=== PATIENT | female | born 1970 | race African-American/Black ===

== ENCOUNTER 2017-11-17 20:07 | Emergency (ER) | payer OTHER ==
[2017-11-17 20:35] VITALS: TEMP 98.5; BMI 35.5
--- NOTE | 2017-11-17 20:36 | PDOC ---
Rapid Medical Evaluation Time Seen by Provider: 11/17/17 20:28 Medical Evaluation: Allergies Allergy/AdvReac Type Severity Reaction Status Date / Time No Known Allergies Allergy Verified 02/28/16 05:37 11/17/17 20:28 I have performed a brief in-person evaluation of this patient. The patient presents with a chief complaint of: headache & pain to back x 4 days , 8/10 pain, c/o chills, cough, no sneezing/runny nose. Pertinent physical exam findings: neurologically intact, no neck stiffness, tachy to 95 I have ordered the following: urine preg The patient will proceed to the ED for further evaluation. Discharge Disposition - Diagnosis Headache - Referrals - Patient Instructions - Post Discharge Activity
[2017-11-17] MEDS ORDERED: METOCLOPRAMIDE HCL INJECTION 10 MG/2 ML VIAL IVPUSH ONE (22:52)
[2017-11-17] MEDS ORDERED: KETOROLAC TROMETHAMINE 30 MG/1 ML VIAL IVPUSH ONE (22:52)
[2017-11-17] MEDS ORDERED: SODIUM CHLORIDE 0.9% 1000 ML INFUS.BAG IV ONE (22:52)
--- NOTE | 2017-11-17 23:54 | PDOC ---
History of Present Illness - General Chief Complaint: Pain Stated Complaint: HEADACHE/FEVER Time Seen by Provider: 11/17/17 20:28 - History of Present Illness Initial Comments: 11/17/17 23:53 CHIEF COMPLAINT: headache and pain to neck/back HISTORY OF PRESENT ILLNESS: 47 yo F with hx of presents to ED with headache & pain to back x 4 days. Patient reports the pain is 8/10 pain and states she has had chills but does not know if she had fevers at home. She also reports cough but no sneezing or any runny nose. She denies any nausea, vomiting, or diarrhea. No recent travel or sick contacts. PAST MEDICAL HISTORY: Denies past medical history FAMILY HISTORY: Denies SOCIAL HISTORY: Lives at home with ____. Occupation: . Denies tobacco, alcohol, illicit drug use. SURGICAL HISTORY: Denies ALLERGIES: No known drug allergies REVIEW OF SYSTEMS General/Constitutional: Denies fever or chills. Denies weakness, weight change. HEENT: Denies change in vision. Denies ear pain or discharge. Denies sore throat. Cardiovascular: Denies chest pain or shortness of breath. Respiratory: Denies cough, wheezing, or hemoptysis. Gastrointestinal: Denies nausea, vomiting, diarrhea or constipation. Denies rectal bleeding. Genitourinary: Denies dysuria, frequency, or change in urination. Musculoskeletal: Denies joint or muscle swelling or pain. Denies neck or back pain. Skin and breasts: Denies rash or easy bruising. Neurologic: Denies headache, vertigo, loss of consciousness, or loss of sensation. Psychiatric: Denies depression or anxiety. Endocrine: Denies increased thirst. Denies abnormal weight change. Hematologic/Lymphatic: Denies anemia, easy bleeding, or history of blood clots. Allergic/Immunologic: Denies hives or skin allergy. Denies latex allergy. PHYSICAL EXAM General Appearance: Well-appearing, appropriately dressed. No apparent distress , no intoxication. HEENT: EOMI, PERRLA, normal ENT inspection, normal voice, TMs normal, pharynx normal. No conjunctival pallor. No photophobia, scleral icterus. Neck: Supple. Trachea midline. No tenderness, rigidity, carotid bruit, stridor , lymphadenopathy, or thyromegaly. Respiratory/Chest: Lungs CTAB. No shortness of breath, chest tenderness, respiratory distress, accessory muscle use. No crackles, rales, rhonchi, stridor , wheezing, dullness Cardiovascular: RRR. S1, S2. No JVD, murmur, bradycardia, tachycardia. Vascular Pulses: Dorsalis-Pedis (R): 2+, Dorsalis-Pedis (L): 2+ Gastrointestinal/Abdominal: Normal bowel sounds. Abdomen soft, non-distended. No tenderness or rebound tenderness. No organomegaly, pulsatile mass, guarding , hernia, hepatomegaly, splenomegaly. Lymphatic: No adenopathy, tenderness. Musculoskeletal/Extremities: Normal inspection. FROM of all extremities, normal capillary refill. Pelvis Stable. No CVA tenderness. No tenderness to extremities, pedal edema, swelling, erythema or deformity. Integumentary: Appropriate color, dry, warm. No cyanosis, erythema, jaundice or rash Neurologic: gift manager II-XII intact. Fully oriented, alert. Appropriate mood/affect. Motor strength 5/5. No appreciable EOM palsy, facial droop or sensory deficit. Past History - Past Medical History Allergies/Adverse Reactions: Allergies Allergy/AdvReac Type Severity Reaction Status Date / Time No Known Allergies Allergy Verified 11/17/17 20:32 Home Medications: Ambulatory Orders Metformin HCl 500 mg PO BID 02/28/16 Glimepiride 2 mg PO DAILY 02/29/16 Benzonatate [Tessalon Pearls -] 100 mg PO TID PRN #21 capsule 11/18/17 Ibuprofen [Motrin -] 600 mg PO TID PRN #21 tablet 11/18/17 COPD: No Diabetes: Yes (NIDDM) - Reproductive History (#): 3 Para: 1 Cervical CA: No Dysfunctional Uterine Bleeding: No Ectopic : No Endometrial CA: No Polycystic Ovaries: No Therapeutic (s) & number: No Tubal Ligation: No Spontaneous : 1 - Suicide/Smoking/Psychosocial Hx Smoking Status: No Smoking History: Never smoked Have you smoked in the past 12 months: No Number of Cigarettes Smoked Daily: 0 Information on smoking cessation initiated: No Hx Alcohol Use: No Drug/Substance Use Hx: No Substance Use Type: None Hx Substance Use Treatment: No *Physical Exam - Vital Signs Last Vital Signs Temp Pulse Resp BP Pulse Ox 98.5 F 95 H 20 136/90 96 11/17/17 20:32 11/17/17 20:32 11/17/17 20:32 11/17/17 20:32 11/17/17 20:32 ED Treatment Course - ADDITIONAL ORDERS Additional order review: Laboratory Results 11/17/17 20:40 Urine HCG, Qual Negative Medical Decision Making - Medical Decision Making 11/18/17 01:34 47 yo F with hx of presents to ED with headache & pain to back x 4 days associated with cough and chills. -flu swab -IVF, toradol, reglan, benadryl Patient reassesesd, states she is now sleepy but her headache and back pain have now resolved and she is feelign umer.r Advised patient to take medication as prescribed and follow up with [] within [] . Advised patient of signs and symptoms for return to ED. Patient verbalized understanding and agrees to plan. *DC/Admit/Observation/Transfer Diagnosis at time of Disposition: Headache, Viral syndrome - Discharge Dispostion Disposition: HOME Condition at time of disposition: Stable Admit: No - Prescriptions Prescriptions: Benzonatate [Tessalon Pearls -] 100 mg PO TID PRN #21 capsule PRN Reason: Cough Ibuprofen [Motrin -] 600 mg PO TID PRN #21 tablet PRN Reason: Fever - Referrals Referrals: Flaquito Looney MD [Primary Care Provider] - - Patient Instructions Printed Discharge Instructions: DI for Viral Syndrome Additional Instructions: Please get lots of rest and drink plenty of fluids. Please take medications as prescribed and follow up with your primary care doctor THIS WEEK as discussed. If you develop any fever, chills, shortness of breath, vomiting, neck stiffness , vomiting, diarrhea, or any new or worsening symptoms, please return to the ER. - Post Discharge Activity Forms/Work/School Notes: Back to Work
[2017-11-17] MEDS ORDERED: METOCLOPRAMIDE HCL INJECTION 10 MG/2 ML VIAL ONE (23:56)
[2017-11-17] MEDS ORDERED: KETOROLAC TROMETHAMINE 30 MG/1 ML VIAL ONE (23:57)
[2017-11-18 02:19] VITALS: BP 126/80; PULSE 79
== END 2017-11-18 02:20 | disposition home or self-care (01) ==
LOC: JER 20:07
PROC: 3E033GC Introduction of Other Therapeutic Substance into Peripheral Vein, Percutaneous Approach (ICD-10-PCS; principal; 2017-11-17)
PROC: 3E0333Z Introduction of Anti-inflammatory into Peripheral Vein, Percutaneous Approach (ICD-10-PCS; 2017-11-17)
PROC: 3E033GC Introduction of Other Therapeutic Substance into Peripheral Vein, Percutaneous Approach (ICD-10-PCS; 2017-11-17)
DX: B34.9 Viral infection, unspecified (principal); R51 Headache
CPT/HCPCS: 84703; 87804; 96374; 96375; 99282-25

== ENCOUNTER 2021-05-14 20:32 | Observation (INO) | payer OTHER ==
[2021-05-15] MEDS ORDERED: DEXAMETHASONE SOD PHOSPHATE 10 MG/1 ML VIAL IVPUSH ONE (00:44)
[2021-05-15] MEDS ORDERED: ACETAMINOPHEN 1000 MG/100 ML VIAL IVPB ONE (00:44)
[2021-05-15] MEDS ORDERED: LACTATED RINGERS SOLUTION 1000 ML INFUS.BAG IV ONE (00:44)
[2021-05-15 00:52] LABS: BASO % 0.5 % (0-2.0); EOS % 0.3 % (0-4.5); HEMATOCRIT 37.2 % (32.4-45.2); HEMOGLOBIN 12.1 GM/dL (10.7-15.3); LYMPH % 27.3 % (8-40); MCH 27.9 pg (25.7-33.7); MCHC 32.5 g/dl (32.0-36.0); MEAN CELL VOLUME 85.9 fl (80-96); MEAN PLT VOLUME 7.6 fl (7.5-11.1); MONO % 4.5 % (3.8-10.2); NEUT % 67.4 % (42.8-82.8); PLATELET COUNT 326 10^3/uL (134-434); RBC 4.34 M/mm3 (3.60-5.2); RDW 13.9 % (11.6-15.6); WHITE BLOOD COUNT 14.3 K/mm3 (4.0-10.0)
[2021-05-15 01:00] LABS: INR 0.88 (0.83-1.09); PROTHROMBIN TIME (PATIENT) 10.9 SEC (9.7-13.0)
[2021-05-15] MEDS ORDERED: ACETAMINOPHEN INJECTION 100 ML IVPB ONE (01:01)
[2021-05-15] MEDS ORDERED: DEXAMETHASONE SOD PHOSPHATE 10 MG/1 ML VIAL ONE (01:01)
[2021-05-15 01:03] LABS: ACTIVATED PTT 25.5 SECONDS (25.2-36.5)
[2021-05-15 01:12] LABS: CHLORIDE 105 mmol/L (98-107); SODIUM 139 mmol/L (136-145)
[2021-05-15 01:13] LABS: ALBUMIN 3.3 g/dl (3.4-5.0); CALCIUM 8.5 mg/dL (8.5-10.1)
[2021-05-15 01:14] LABS: ANION GAP 7 MMOL/L (8-16); BLOOD UREA NITROGEN 10.5 mg/dL (7-18); CO2 28 mmol/L (21-32); GLUCOSE,RANDOM 223 mg/dL (74-106); MAGNESIUM 1.9 mg/dL (1.8-2.4)
[2021-05-15 01:18] LABS: CREATININE 0.9 mg/dL (0.55-1.3); SGOT/AST 14 U/L (15-37); SGPT/ALT 22 U/L (13-61)
[2021-05-15 01:19] LABS: ALK PHOS 127 U/L (45-117); BILIRUBIN,TOTAL 0.5 mg/dL (0.2-1); TOT PROT 6.9 g/dl (6.4-8.2)
[2021-05-15] MEDS ORDERED: LISINOPRIL 20 MG TABLET ONE (08:47)
[2021-05-15] MEDS ORDERED: ENOXAPARIN NA (PORCINE) 40 MG/0.4 ML DISP.SYRIN SQ ONE (08:47)
[2021-05-15] MEDS ORDERED: INSULIN REGULAR HUMAN 100 UNITS/ML *VIAL ONE (09:05)
[2021-05-15] MEDS: INSULIN SLIDING SCALE (NOVOLOG) 1 VIAL SQ SCH ×3 (09:07→18:12)
[2021-05-15] MEDS: LISINOPRIL 20 MG TABLET PO SCH (10:01)
[2021-05-15] MEDS: ENOXAPARIN NA (PORCINE) 40 MG/0.4 ML DISP.SYRIN SQ SCH (10:01)
[2021-05-15 11:35] LABS: MAGNESIUM 1.8 mg/dL (1.8-2.4)
[2021-05-15 11:39] LABS: PHOSPHOROUS 3.1 mg/dL (2.5-4.9)
[2021-05-15 12:29] LABS: HIV INTERPRETATION NEGATIVE (NEGATIVE)
[2021-05-15 14:15] VITALS: BMI 38.3
[2021-05-15] MEDS ORDERED: ATORVASTATIN CA 10 MG TABLET (FP) PO SCH (22:00)
[2021-05-16] MEDS ORDERED: GLIMEPIRIDE 2 MG TABLET PO SCH (07:00)
[2021-05-16] MEDS: INSULIN SLIDING SCALE (NOVOLOG) 1 VIAL SQ SCH ×3 (07:25→16:47)
[2021-05-16 08:38] LABS: BASO % 0.3 % (0-2.0); EOS % 0.1 % (0-4.5); HEMATOCRIT 35.8 % (32.4-45.2); HEMOGLOBIN 11.6 GM/dL (10.7-15.3); LYMPH % 30.5 % (8-40); MCH 27.8 pg (25.7-33.7); MCHC 32.3 g/dl (32.0-36.0); MONO % 4.2 % (3.8-10.2); NEUT % 64.9 % (42.8-82.8); PLATELET COUNT 320 10^3/uL (134-434); RBC 4.16 M/mm3 (3.60-5.2); RDW 13.8 % (11.6-15.6); WHITE BLOOD COUNT 12.8 K/mm3 (4.0-10.0)
[2021-05-16 09:05] LABS: ALBUMIN 2.8 g/dl (3.4-5.0); BLOOD UREA NITROGEN 13.9 mg/dL (7-18); CALCIUM 8.8 mg/dL (8.5-10.1); MAGNESIUM 1.8 mg/dL (1.8-2.4)
[2021-05-16 09:07] LABS: CREATININE 0.9 mg/dL (0.55-1.3)
[2021-05-16 09:09] LABS: BILIRUBIN,TOTAL 0.5 mg/dL (0.2-1); TOT PROT 6.2 g/dl (6.4-8.2)
[2021-05-16] MEDS ORDERED: PT OWN MED DRAWER 7, Y5N ONE ×2 (09:29→13:27)
[2021-05-16] MEDS: LISINOPRIL 20 MG TABLET PO SCH (09:39)
[2021-05-16] MEDS: ENOXAPARIN NA (PORCINE) 40 MG/0.4 ML DISP.SYRIN SQ SCH (09:39)
[2021-05-16 17:31] VITALS: BP 152/97; PULSE 84; TEMP 97.7
== END 2021-05-16 18:58 | disposition home or self-care (01) ==
LOC: JER 20:32 → UNDOADMOB 05-15 04:39 → INTOOBSV 05-15 04:39 → JERBED 05-15 04:39 → J8W 05-15 11:39 → JERBED 05-15 11:39 → J8W 05-16 08:47 → JERBED 05-16 08:47
PROVIDERS: ADMIT Internal Medicine; ATTEND Internal Medicine
PROC: 3E023GC Introduction of Other Therapeutic Substance into Muscle, Percutaneous Approach (ICD-10-PCS; principal; 2021-05-16)
PROC: 3E033NZ Introduction of Analgesics, Hypnotics, Sedatives into Peripheral Vein, Percutaneous Approach (ICD-10-PCS; 2021-05-16)
PROC: 3E033GC Introduction of Other Therapeutic Substance into Peripheral Vein, Percutaneous Approach (ICD-10-PCS; 2021-05-16)
PROC: 3E013VG Introduction of Insulin into Subcutaneous Tissue, Percutaneous Approach (ICD-10-PCS; 2021-05-16)
PROC: 3E0337Z Introduction of Electrolytic and Water Balance Substance into Peripheral Vein, Percutaneous Approach (ICD-10-PCS; 2021-05-16)
DX: R76.12 Nonspecific reaction to cell mediated immunity measurement of gamma interferon antigen response without active tuberculosis (principal); R59.1 Generalized enlarged lymph nodes; I10 Essential (primary) hypertension; E11.9 Type 2 diabetes mellitus without complications; E78.5 Hyperlipidemia, unspecified; Z29.9 Encounter for prophylactic measures, unspecified; E66.8 Other obesity; Z68.38 Body mass index [BMI] 38.0-38.9, adult; I25.2 Old myocardial infarction; I34.0 Nonrheumatic mitral (valve) insufficiency; N13.30 Unspecified hydronephrosis; N20.1 Calculus of ureter; B34.9 Viral infection, unspecified
CPT/HCPCS: 36415; 70491-TC; 71045-TC-FY; 71250-TC; 76705-TC; 80053; 82550; 82962; 83036; 83605; 83735; 84100; 84436; 84443; 84484; 84703; 85025; 85610; 85651; 85730; 86038; 86140; 86235; 86431; 86611; 87070; 87389; 87804; 87880; 93005; 93010; 96361; 96372; 96374; 96375; 97116-GP; 97161-GP; 99285-25; C9803; G0378; J0131; J1100; U0003; U0005

== ENCOUNTER 2022-03-11 12:59 | Inpatient (IN) | payer OTHER ==
[2022-03-11] MEDS ORDERED: SODIUM CHLORIDE 0.9% 500 ML INFUS.BAG IV ONE (14:35)
[2022-03-11] MEDS ORDERED: ONDANSETRON 4 MG/2 ML VIAL IVPUSH ONE ×2 (14:35→17:01)
[2022-03-11] MEDS ORDERED: ACETAMINOPHEN 1000 MG/100 ML BAG IVPB ONE (14:35)
[2022-03-11] MEDS ORDERED: ACETAMINOPHEN INJECTION 100 ML IVPB ONE (14:56)
[2022-03-11] MEDS ORDERED: ONDANSETRON 4 MG/2 ML VIAL ONE ×2 (14:56→17:06)
[2022-03-11 15:17] LABS: BASO % 0.4 % (0-2.0); EOS % 0.1 % (0-4.5); HEMATOCRIT 37.4 % (32.4-45.2); HEMOGLOBIN 12.2 GM/dL (10.7-15.3); MCH 27.7 pg (25.7-33.7); MCHC 32.6 g/dl (32.0-36.0); MEAN PLT VOLUME 7.5 fl (7.5-11.1); MONO % 4.9 % (3.8-10.2); NEUT % 82.6 % (42.8-82.8); PLATELET COUNT 348 10^3/uL (134-434); RBC 4.41 M/mm3 (3.60-5.2); RDW 13.8 % (11.6-15.6); WHITE BLOOD COUNT 9.3 K/mm3 (4.0-10.0)
[2022-03-11 15:29] LABS: INR 1.05 (0.83-1.09); PROTHROMBIN TIME (PATIENT) 12.1 SEC (9.7-13.0)
[2022-03-11 15:31] LABS: ACTIVATED PTT 30.1 SECONDS (25.2-36.5)
[2022-03-11 15:47] LABS: CALCIUM 9.3 mg/dL (8.5-10.1)
[2022-03-11 15:48] LABS: ALBUMIN 3.3 g/dl (3.4-5.0)
[2022-03-11 15:51] LABS: CREATININE 0.8 mg/dL (0.55-1.3)
[2022-03-11 15:52] LABS: BILIRUBIN,TOTAL 2.1 mg/dL (0.2-1); TOT PROT 8.1 g/dl (6.4-8.2)
[2022-03-11 15:54] LABS: BLOOD UREA NITROGEN 6.6 mg/dL (7-18)
[2022-03-11] MEDS ORDERED: morphine CARPU-JECT 4 MG/1 ML DISP.SYRIN IVPUSH ONE ×2 (17:01→18:44)
[2022-03-11] MEDS ORDERED: morphine SULFATE 4 MG/ML VIAL ONE ×3 (17:06→22:18)
[2022-03-11] MEDS ORDERED: CEFTRIAXONE 1 GM in DEXTROSE 5%-WATER - 100 ML IVPB ONE (17:21)
[2022-03-11] MEDS ORDERED: CEFTRIAXONE 1 GM/50 ML BAG ONE (17:34)
[2022-03-11] MEDS ORDERED: morphine SULFATE 4 MG/ML VIAL IVPUSH PRN (20:14)
[2022-03-11] MEDS: DEXTROSE 5%-NORMAL SALINE 1,000 ML IV SCH (20:43)
[2022-03-11] MEDS ORDERED: DEXTROSE 50%-WATER - 25 GM/50 ML VIAL IVPUSH PRN (20:50)
[2022-03-11] MEDS ORDERED: ONDANSETRON 4 MG/2 ML VIAL IVPUSH PRN (22:00)
[2022-03-11] MEDS: INSULIN SLIDING SCALE (NOVOLOG) 1 VIAL SQ SCH (22:47)
[2022-03-12 03:59] VITALS: BMI 35.9
[2022-03-12] MEDS: INSULIN SLIDING SCALE (NOVOLOG) 1 VIAL SQ SCH ×4 (06:31→21:04)
[2022-03-12 09:05] LABS: BASO % 0.4 % (0-2.0); EOS % 0.6 % (0-4.5); HEMATOCRIT 35.6 % (32.4-45.2); HEMOGLOBIN 11.8 GM/dL (10.7-15.3); LYMPH % 21.3 % (8-40); MCH 27.8 pg (25.7-33.7); MEAN CELL VOLUME 84.2 fl (80-96); MEAN PLT VOLUME 7.3 fl (7.5-11.1); MONO % 6.5 % (3.8-10.2); NEUT % 71.2 % (42.8-82.8); PLATELET COUNT 346 10^3/uL (134-434); RBC 4.23 M/mm3 (3.60-5.2); RDW 13.1 % (11.6-15.6); WHITE BLOOD COUNT 9.3 K/mm3 (4.0-10.0)
[2022-03-12] MEDS ORDERED: cefTRIAXone SODIUM 1 GM VIAL ONE (09:31)
[2022-03-12] MEDS ORDERED: DEXTROSE 5%-WATER - 50 ML IVPB ONE (09:31)
[2022-03-12] MEDS: CEFTRIAXONE 1 GM in DEXTROSE 5%-WATER - 50 ML IVPB SCH (09:52)
[2022-03-12] MEDS: LISINOPRIL 20 MG TABLET PO SCH (09:52)
[2022-03-12 10:36] LABS: CALCIUM 8.9 mg/dL (8.5-10.1)
[2022-03-12 10:37] LABS: BLOOD UREA NITROGEN 5.8 mg/dL (7-18); MAGNESIUM 2.1 mg/dL (1.8-2.4)
[2022-03-12 10:39] LABS: ALBUMIN 2.8 g/dl (3.4-5.0)
[2022-03-12 10:40] LABS: CREATININE 0.6 mg/dL (0.55-1.3)
[2022-03-12 10:41] LABS: TOT PROT 6.7 g/dl (6.4-8.2)
[2022-03-12 10:42] LABS: BILIRUBIN,TOTAL 2.5 mg/dL (0.2-1)
[2022-03-12 11:03] LABS: CHOLESTEROL 154 mg/dL (50-200)
[2022-03-12 11:04] LABS: LDL CHOLESTEROL (ONLY SJRH) 76 mg/dL (5-100)
[2022-03-12 11:05] LABS: HDL CHOLESTEROL 57 mg/dL (40-60)
[2022-03-12 11:07] LABS: TRIGLYCERIDES 63 mg/dL (0-150)
[2022-03-12] MEDS ORDERED: ACETAMINOPHEN 1000 MG/100 ML BAG IVPB PRN ×2 (14:35→15:21)
[2022-03-12] MEDS ORDERED: morphine SULFATE 4 MG/ML VIAL IVPUSH PRN (15:22)
[2022-03-12 15:47] LABS: EPI CELLS >36 /uL (0-25.1); HYALINE CASTS 7 /uL (0-3.1); URINE APPEARANCE CLOUDY; URINE BILIRUBIN 2+ (NEGATIVE); URINE COLOR DK YELLOW; URINE GLUCOSE (UA) NEGATIVE (NEGATIVE); URINE KETONE NEGATIVE (NEGATIVE); URINE LEUK ESTERASE TRACE (NEGATIVE); URINE NITRITE POSITIVE (NEGATIVE); URINE PROTEIN TRACE (NEGATIVE); URINE RBC 4 /uL (0-23.9); URINE WBC 11 /uL (0-25.8)
[2022-03-12 15:49] LABS: URINE BACTERIA 158.5 /uL (0-1359)
[2022-03-12] MEDS: DEXTROSE 5%-NORMAL SALINE 1,000 ML IV SCH (20:33)
[2022-03-13] MEDS ORDERED: INSULIN (NOVOLOG) ASPART 100 UNITS/ML 10ML VIAL ONE (05:44)
[2022-03-13] MEDS: INSULIN SLIDING SCALE (NOVOLOG) 1 VIAL SQ SCH ×4 (06:28→21:30)
[2022-03-13] MEDS ORDERED: INDOMETHACIN 50 MG RECTAL SUPPOSITORY PR ONE ×2 (09:00→10:32)
[2022-03-13] MEDS ORDERED: FENTANYL CITRATE/PF 50 MCG/ML VIAL ONE (09:44)
[2022-03-13] MEDS ORDERED: IOHEXOL 300 MG/ML INFUS..BTL IV ONE (10:57)
[2022-03-13] MEDS ORDERED: DEXTROSE 5%-LACTATED RINGERS 1,000 ML IV SCH (11:30)
[2022-03-13] MEDS: LISINOPRIL 20 MG TABLET PO SCH ×2 (12:33→14:43)
[2022-03-13] MEDS ORDERED: cefTRIAXone SODIUM 1 GM VIAL ONE (13:12)
[2022-03-13] MEDS ORDERED: DEXTROSE 5%-WATER - 50 ML IVPB ONE (13:12)
[2022-03-13] MEDS: CEFTRIAXONE 1 GM in DEXTROSE 5%-WATER - 50 ML IVPB SCH (13:16)
[2022-03-13] MEDS ORDERED: amLODIPine BESYLATE 5 MG TABLET (FP) PO ONE (18:14)
[2022-03-13 18:43] LABS: BASO % 0.3 % (0-2.0); EOS % 0.9 % (0-4.5); HEMATOCRIT 37.2 % (32.4-45.2); HEMOGLOBIN 12.1 GM/dL (10.7-15.3); LYMPH % 30.9 % (8-40); MCH 27.7 pg (25.7-33.7); MCHC 32.6 g/dl (32.0-36.0); MEAN PLT VOLUME 7.5 fl (7.5-11.1); MONO % 5.4 % (3.8-10.2); NEUT % 62.5 % (42.8-82.8); PLATELET COUNT 348 10^3/uL (134-434); RBC 4.37 M/mm3 (3.60-5.2); RDW 13.6 % (11.6-15.6); WHITE BLOOD COUNT 7.5 K/mm3 (4.0-10.0)
[2022-03-13 19:03] LABS: INR 1.15 (0.83-1.09); PROTHROMBIN TIME (PATIENT) 13.3 SEC (9.7-13.0)
[2022-03-13 19:07] LABS: ALBUMIN 2.9 g/dl (3.4-5.0); BLOOD UREA NITROGEN 5.4 mg/dL (7-18); CALCIUM 9.2 mg/dL (8.5-10.1)
[2022-03-13 19:08] LABS: LIPASE 562 U/L (73-393)
[2022-03-13 19:09] LABS: AMYLASE 56 U/L (25-115); BILIRUBIN,DIRECT 0.9 mg/dL (0.0-0.2)
[2022-03-13 19:10] LABS: CREATININE 0.7 mg/dL (0.55-1.3)
[2022-03-13 19:12] LABS: BILIRUBIN,TOTAL 1.5 mg/dL (0.2-1); TOT PROT 6.8 g/dl (6.4-8.2)
[2022-03-13] MEDS: DEXTROSE 5%-LACTATED RINGERS 1,000 ML IV SCH (20:00)
[2022-03-14] MEDS: DEXTROSE 5%-LACTATED RINGERS 1,000 ML IV SCH (01:00)
[2022-03-14] MEDS ORDERED: DEXTROSE 5%-LACTATED RINGERS 1,000 ML IV SCH (06:00)
[2022-03-14] MEDS: INSULIN SLIDING SCALE (NOVOLOG) 1 VIAL SQ SCH ×4 (06:29→21:47)
[2022-03-14] MEDS ORDERED: ONDANSETRON 4 MG/2 ML VIAL ONE (07:07)
[2022-03-14] MEDS ORDERED: FENTANYL CITRATE/PF 50 MCG/ML VIAL ONE ×8 (07:07→10:35)
[2022-03-14] MEDS ORDERED: KETOROLAC TROMETHAMINE 30 MG/1 ML VIAL ONE (07:07)
[2022-03-14] MEDS ORDERED: LIDOCAINE HCL 2% 100 MG/5 ML DISP.SYRIN ONE (07:07)
[2022-03-14] MEDS ORDERED: PROPOFOL 20 ML ONE (07:07)
[2022-03-14] MEDS ORDERED: ROCURONIUM BROMIDE 100 MG/10 ML VIAL ONE (07:07)
[2022-03-14] MEDS ORDERED: DEXAMETHASONE SOD PHOSPHATE 4 MG/1 ML VIAL ONE (07:07)
[2022-03-14] MEDS ORDERED: SUCCINYLCHOLINE CHLORIDE 200 MG/10 ML SYRINGE ONE (07:08)
[2022-03-14] MEDS ORDERED: ceFAZolin SODIUM 1 GM VIAL ONE (07:08)
[2022-03-14] MEDS ORDERED: MIDAZOLAM HCL 2 MG/2 ML SINGLE DOSE VIAL ONE (07:08)
[2022-03-14] MEDS ORDERED: BUPIVACAINE HCL/PF 0.25% (2.5MG/ML) 10 ML VIAL ONE (07:12)
[2022-03-14] MEDS ORDERED: PIPERACILLIN/TAZOBACTAM 3.375 GM VIAL IVPB ONE ×2 (07:19→07:35)
[2022-03-14] MEDS ORDERED: BUPIVACAINE HCL/PF 0.25% (2.5MG/ML) 10 ML VIAL IJ ONE (07:48)
[2022-03-14] MEDS ORDERED: PROMETHAZINE HCL 25 MG/1 ML VIAL IVPUSH PRN ×2 (09:19→11:04)
[2022-03-14] MEDS ORDERED: FENTANYL CITRATE/PF 50 MCG/ML VIAL IVPUSH PRN ×4 (09:19→11:04)
[2022-03-14] MEDS ORDERED: LACTATED RINGERS SOLUTION 1,000 ML IV SCH ×2 (09:30→10:30)
[2022-03-14] MEDS: LISINOPRIL 20 MG TABLET PO SCH (09:51)
[2022-03-14] MEDS: CEFTRIAXONE 1 GM in DEXTROSE 5%-WATER - 50 ML IVPB SCH (09:51)
[2022-03-14] MEDS ORDERED: amLODIPine BESYLATE 5 MG TABLET (FP) PO SCH (10:00)
[2022-03-14] MEDS ORDERED: ACETAMINOPHEN 1000 MG/100 ML BAG IVPB ONE ×2 (10:42→10:45)
[2022-03-14] MEDS ORDERED: ONDANSETRON 4 MG/2 ML VIAL IVPUSH PRN (11:04)
[2022-03-14] MEDS ORDERED: INDOMETHACIN 50 MG RECTAL SUPPOSITORY PR ONE (11:04)
[2022-03-14] MEDS: LACTATED RINGERS SOLUTION 1,000 ML IV SCH (11:57)
[2022-03-14] MEDS: morphine SULFATE 4 MG/ML VIAL IVPUSH PRN ×2 (12:51→21:41)
[2022-03-14 15:54] LABS: BASO % 0.2 % (0-2.0); HEMATOCRIT 36.9 % (32.4-45.2); HEMOGLOBIN 12.2 GM/dL (10.7-15.3); LYMPH % 7.8 % (8-40); MCH 27.8 pg (25.7-33.7); MEAN CELL VOLUME 84.2 fl (80-96); MEAN PLT VOLUME 7.4 fl (7.5-11.1); PLATELET COUNT 379 10^3/uL (134-434); RBC 4.38 M/mm3 (3.60-5.2); RDW 13.9 % (11.6-15.6)
[2022-03-14 16:19] LABS: LIPASE 95 U/L (73-393)
[2022-03-14 16:20] LABS: AMYLASE 32 U/L (25-115); CALCIUM 9.1 mg/dL (8.5-10.1); MAGNESIUM 1.9 mg/dL (1.8-2.4)
[2022-03-14 16:23] LABS: CREATININE 0.6 mg/dL (0.55-1.3)
[2022-03-14 16:25] LABS: BILIRUBIN,TOTAL 0.8 mg/dL (0.2-1); TOT PROT 6.8 g/dl (6.4-8.2)
[2022-03-14 16:29] LABS: ALBUMIN 2.8 g/dl (3.4-5.0); BLOOD UREA NITROGEN 3.6 mg/dL (7-18)
[2022-03-14] MEDS ORDERED: INSULIN (NOVOLOG) ASPART 100 UNITS/ML 10ML VIAL ONE (21:39)
[2022-03-15] MEDS: morphine SULFATE 4 MG/ML VIAL IVPUSH PRN ×4 (01:42→22:04)
[2022-03-15] MEDS: INSULIN SLIDING SCALE (NOVOLOG) 1 VIAL SQ SCH ×4 (06:02→22:23)
[2022-03-15] MEDS: LISINOPRIL 20 MG TABLET PO SCH (09:27)
[2022-03-15] MEDS: amLODIPine BESYLATE 5 MG TABLET (FP) PO SCH (09:27)
[2022-03-15] MEDS: LACTATED RINGERS SOLUTION 1,000 ML IV SCH ×3 (09:27→18:21)
[2022-03-15 10:00] LABS: BASO % 0.3 % (0-2.0); HEMATOCRIT 35.8 % (32.4-45.2); HEMOGLOBIN 11.8 GM/dL (10.7-15.3); LYMPH % 18.4 % (8-40); MCH 27.8 pg (25.7-33.7); MEAN CELL VOLUME 84.5 fl (80-96); MONO % 6.5 % (3.8-10.2); NEUT % 73.8 % (42.8-82.8); PLATELET COUNT 362 10^3/uL (134-434); RBC 4.24 M/mm3 (3.60-5.2); RDW 13.3 % (11.6-15.6); WHITE BLOOD COUNT 10.2 K/mm3 (4.0-10.0)
[2022-03-15] MEDS ORDERED: cefTRIAXone SODIUM 1 GM VIAL ONE (10:40)
[2022-03-15] MEDS ORDERED: DEXTROSE 5%-WATER - 50 ML IVPB ONE (10:40)
[2022-03-15] MEDS: CEFTRIAXONE 1 GM in DEXTROSE 5%-WATER - 50 ML IVPB SCH (10:43)
[2022-03-15 10:55] LABS: ALBUMIN 2.7 g/dl (3.4-5.0); BILIRUBIN,DIRECT 0.3 mg/dL (0.0-0.2)
[2022-03-15 10:57] LABS: BILIRUBIN,TOTAL 0.7 mg/dL (0.2-1); TOT PROT 6.5 g/dl (6.4-8.2)
[2022-03-15 11:01] LABS: CALCIUM 9.1 mg/dL (8.5-10.1)
[2022-03-15 11:02] LABS: ALBUMIN 2.8 g/dl (3.4-5.0); BLOOD UREA NITROGEN 5.2 mg/dL (7-18)
[2022-03-15 11:05] LABS: CREATININE 0.6 mg/dL (0.55-1.3)
[2022-03-15 11:07] LABS: BILIRUBIN,TOTAL 0.9 mg/dL (0.2-1)
[2022-03-15 11:08] LABS: TOT PROT 6.5 g/dl (6.4-8.2)
[2022-03-16 04:38] VITALS: PULSE 92
[2022-03-16] MEDS: INSULIN SLIDING SCALE (NOVOLOG) 1 VIAL SQ SCH ×2 (06:33→11:35)
[2022-03-16] MEDS: LISINOPRIL 20 MG TABLET PO SCH (09:47)
[2022-03-16] MEDS: amLODIPine BESYLATE 5 MG TABLET (FP) PO SCH (09:47)
[2022-03-16] MEDS ORDERED: cefTRIAXone SODIUM 1 GM VIAL ONE (09:48)
[2022-03-16] MEDS ORDERED: DEXTROSE 5%-WATER - 50 ML IVPB ONE (09:48)
[2022-03-16] MEDS: CEFTRIAXONE 1 GM in DEXTROSE 5%-WATER - 50 ML IVPB SCH (09:49)
[2022-03-16] MEDS ORDERED: POLYETHYLENE GLYCOL (HEALTHYLAX) 3350 17 GM PACKET PO SCH (10:00)
[2022-03-16 11:52] VITALS: BP 150/70; TEMP 98.4
[2022-03-16] MEDS ORDERED: ATORVASTATIN CA 10 MG TABLET (FP) PO SCH (22:00)
== END 2022-03-16 14:36 | disposition home or self-care (01) | DRG 263 ==
LOC: JER 12:59 → JERBED 17:24 → J6S 03-12 03:23
PROVIDERS: ADMIT Internal Medicine; ATTEND Nurse Practitioner Acute Care
PROC: 0FT44ZZ Resection of Gallbladder, Percutaneous Endoscopic Approach (ICD-10-PCS; 2022-03-13)
PROC: 0FJB8ZZ Inspection of Hepatobiliary Duct, Via Natural or Artificial Opening Endoscopic (ICD-10-PCS; 2022-03-13)
PROC: 0FC98ZZ Extirpation of Matter from Common Bile Duct, Via Natural or Artificial Opening Endoscopic (ICD-10-PCS; principal; 2022-03-13 09:00)
DX: K80.63 Calculus of gallbladder and bile duct with acute cholecystitis with obstruction (principal); I10 Essential (primary) hypertension; E11.9 Type 2 diabetes mellitus without complications; E78.5 Hyperlipidemia, unspecified; E66.9 Obesity, unspecified; Z68.35 Body mass index [BMI] 35.0-35.9, adult
CPT/HCPCS: 0241U-QW; 36415; 74181-TC; 76000-TC-FY; 76705-TC; 80048; 80053; 80061; 80076; 81003; 82150; 82962; 83036; 83690; 83735; 84100; 84443; 84484; 84703; 85025; 85610; 85730; 86140; 86850; 86900; 86901; 87070; 87075; 87205; 88307-TC; 88341-TC; 93005; 93010; 94760; 99285-25

== ENCOUNTER 2022-04-08 04:51 | Day surgery (SDC) | payer OTHER ==
[2022-04-07 18:07] VITALS: BMI 35.8
[2022-04-08] MEDS ORDERED: FENTANYL CITRATE/PF 50 MCG/ML VIAL ONE (11:35)
[2022-04-08] MEDS ORDERED: MIDAZOLAM HCL 2 MG/2 ML SINGLE DOSE VIAL ONE (11:35)
[2022-04-08] MEDS ORDERED: SODIUM CHLORIDE 500 ML IV ONE (12:13)
[2022-04-08] MEDS ORDERED: FENTANYL CITRATE/PF 50 MCG/ML VIAL IVPUSH ONE (12:13)
[2022-04-08] MEDS ORDERED: MIDAZOLAM HCL 2 MG/2 ML SINGLE DOSE VIAL IVPUSH ONE (12:13)
[2022-04-08] MEDS ORDERED: ACETAMINOPHEN 325 MG TABLET (FP) ONE (13:17)
[2022-04-08] MEDS ORDERED: ACETAMINOPHEN 325 MG TABLET (FP) PO ONE (13:20)
[2022-04-08 15:57] VITALS: BP 154/94; PULSE 80; TEMP 98.1
== END 2022-04-08 16:20 | disposition home or self-care (01) ==
LOC: JRADIR 04:51
PROVIDERS: ATTEND Surgery
PROC: 0FB03ZX Excision of Liver, Percutaneous Approach, Diagnostic (ICD-10-PCS; principal; 2022-04-08)
DX: C78.7 Secondary malignant neoplasm of liver and intrahepatic bile duct (principal)
CPT/HCPCS: 47000; 76942-TC; 81025; 82962; 88305-TC; 88341-TC; 88342-TC

== ENCOUNTER 2022-04-15 17:01 | Emergency (ER) | payer OTHER ==
[2022-04-15 17:49] VITALS: BP 156/98; PULSE 97; TEMP 98.7; BMI 35.8
[2022-04-15] MEDS ORDERED: ACETAMINOPHEN 500 MG TABLET (FP) PO ONE (19:46)
[2022-04-15] MEDS ORDERED: ACETAMINOPHEN 500 MG TABLET (FP) ONE (19:59)
== END 2022-04-15 21:25 | disposition home or self-care (01) ==
LOC: JERFT 17:01 → JER 17:01 → JERFT 21:25
DX: R10.9 Unspecified abdominal pain (principal); R07.9 Chest pain, unspecified; V49.50XA Passenger injured in collision with unspecified motor vehicles in traffic accident, initial encounter
CPT/HCPCS: 71046-TC-FY; 72100-TC-FY; 73030-TC-RT-FY; 93005; 93010; 99285-25

== ENCOUNTER 2022-07-01 08:17 | Day surgery (SDC) | payer OTHER ==
[2022-06-26 14:26] VITALS: BMI 34.5
[2022-07-01] MEDS ORDERED: FUROSEMIDE 40 MG/4 ML INJECTABLE VIAL IVPUSH ONE ×3 (08:45→11:30)
[2022-07-01] MEDS ORDERED: SODIUM CHLORIDE 1,000 ML IV ONE (09:00)
[2022-07-01 09:29] LABS: BASO % 0.3 % (0-2.0); EOS % 1.4 % (0-4.5); HEMATOCRIT 35.9 % (32.4-45.2); MCH 28.1 pg (25.7-33.7); MCHC 33.3 g/dl (32.0-36.0); MEAN CELL VOLUME 84.3 fl (80-96); MEAN PLT VOLUME 7.5 fl (7.5-11.1); MONO % 4.9 % (3.8-10.2); NEUT % 69.4 % (42.8-82.8); PLATELET COUNT 351 10^3/uL (134-434); RBC 4.26 M/mm3 (3.60-5.2); RDW 14.7 % (11.6-15.6); WHITE BLOOD COUNT 8.1 K/mm3 (4.0-10.0)
[2022-07-01 09:37] LABS: PROTHROMBIN TIME (PATIENT) 11.5 SEC (9.7-13.0)
[2022-07-01 09:40] LABS: ACTIVATED PTT 31.9 SECONDS (25.2-36.5)
[2022-07-01 09:43] LABS: ALBUMIN 3.6 g/dl (3.4-5.0); CALCIUM 9.3 mg/dL (8.5-10.1); MAGNESIUM 1.8 mg/dL (1.8-2.4)
[2022-07-01 09:44] LABS: BLOOD UREA NITROGEN 12.1 mg/dL (7-18)
[2022-07-01 09:46] LABS: BILIRUBIN,DIRECT 0.2 mg/dL (0.0-0.2)
[2022-07-01 09:47] LABS: CREATININE 0.8 mg/dL (0.55-1.3)
[2022-07-01 09:48] LABS: BILIRUBIN,TOTAL 0.6 mg/dL (0.2-1); TOT PROT 7.2 g/dl (6.4-8.2)
[2022-07-01] MEDS ORDERED: DEXAMETHASONE SODIUM PHOSPHATE 10 MG in SODIUM CHLORIDE 50 ML IVPB ONE (10:30)
[2022-07-01] MEDS ORDERED: FOSAPREPITANT DIMEGLUMINE 150 MG in SODIUM CHLORIDE 145 ML IVPB ONE (10:30)
[2022-07-01] MEDS ORDERED: PALONOSETRON HCL 0.25 MG/5 ML VIAL IVPUSH ONE (10:30)
[2022-07-01] MEDS ORDERED: GEMCITABINE HCL IVPB ONE (11:00)
[2022-07-01] MEDS ORDERED: SODIUM CHLORIDE IVPB ONE (11:00)
[2022-07-01] MEDS ORDERED: MIDAZOLAM HCL 2 MG/2 ML SINGLE DOSE VIAL ONE (11:11)
[2022-07-01] MEDS ORDERED: FENTANYL CITRATE/PF 50 MCG/ML VIAL IVPUSH ONE ×2 (11:25→11:35)
[2022-07-01] MEDS ORDERED: MIDAZOLAM HCL 2 MG/2 ML SINGLE DOSE VIAL IVPUSH ONE ×2 (11:25→11:35)
[2022-07-01] MEDS ORDERED: SODIUM CHLORIDE IV ONE (11:45)
[2022-07-01] MEDS ORDERED: CISPLATIN IV ONE (11:45)
[2022-07-01] MEDS ORDERED: POTASSIUM CHLORIDE 20 MEQ, MAGNESIUM SULFATE 2 GM in SODIUM CHLORIDE 500 ML IV ONE (13:00)
[2022-07-01 14:25] VITALS: RESP 18
[2022-07-01 14:27] VITALS: BP 136/88; PULSE 70; TEMP 97.1
[2022-07-01] MEDS ORDERED: PORTA CATH FLUSH 10 ML IVPUSH PRN (18:25)
== END 2022-07-01 18:15 | disposition home or self-care (01) ==
LOC: JRADIR 08:17 → J7W 14:38 → JRADIR 18:15
PROVIDERS: ATTEND Internal Medicine Hematology & Oncology
PROC: 02HV33Z Insertion of Infusion Device into Superior Vena Cava, Percutaneous Approach (ICD-10-PCS; principal; 2022-07-01)
PROC: B548ZZA Ultrasonography of Superior Vena Cava, Guidance (ICD-10-PCS; 2022-07-01)
PROC: 3E04305 Introduction of Other Antineoplastic into Central Vein, Percutaneous Approach (ICD-10-PCS; 2022-07-01)
DX: C23 Malignant neoplasm of gallbladder (principal); C78.7 Secondary malignant neoplasm of liver and intrahepatic bile duct
CPT/HCPCS: 36561; 76937; 96361; 96367; 96375; 96413; 96417; C1788; 36415; 80048; 80076; 82962; 83735; 84703; 85025; 85610; 85730; J1453; J2469

== ENCOUNTER 2022-07-08 06:45 | Day surgery (SDC) | payer OTHER ==
[2022-07-08] MEDS ORDERED: SODIUM CHLORIDE 250 ML IV ONE (09:00)
[2022-07-08] MEDS ORDERED: PALONOSETRON HCL 0.25 MG/5 ML VIAL IVPUSH ONE (09:30)
[2022-07-08] MEDS ORDERED: IRON SUCROSE INJECTION 200 MG in SODIUM CHLORIDE 100 ML IVPB ONE (09:30)
[2022-07-08] MEDS ORDERED: FOSAPREPITANT DIMEGLUMINE 150 MG in SODIUM CHLORIDE 145 ML IVPB ONE (09:30)
[2022-07-08] MEDS ORDERED: DEXAMETHASONE SODIUM PHOSPHATE 8 MG in SODIUM CHLORIDE 50 ML IVPB ONE (09:30)
[2022-07-08] MEDS ORDERED: SODIUM CHLORIDE IVPB ONE (10:00)
[2022-07-08] MEDS ORDERED: GEMCITABINE HCL IVPB ONE (10:00)
[2022-07-08] MEDS ORDERED: SODIUM CHLORIDE 1,000 ML IV ONE (13:00)
[2022-07-08 13:12] LABS: HEMATOCRIT 36.1 % (32.4-45.2); HEMOGLOBIN 11.9 GM/dL (10.7-15.3); MCH 28.1 pg (25.7-33.7); MEAN PLT VOLUME 6.8 fl (7.5-11.1); PLATELET COUNT 288 10^3/uL (134-434); RBC 4.25 M/mm3 (3.60-5.2); RDW 14.6 % (11.6-15.6); WHITE BLOOD COUNT 5.6 K/mm3 (4.0-10.0)
[2022-07-08 13:32] VITALS: TEMP 98.8
[2022-07-08 13:59] LABS: BLOOD UREA NITROGEN 8.4 mg/dL (7-18); CALCIUM 9.3 mg/dL (8.5-10.1)
[2022-07-08 14:00] LABS: ALBUMIN 3.6 g/dl (3.4-5.0); MAGNESIUM 1.9 mg/dL (1.8-2.4)
[2022-07-08] MEDS ORDERED: POTASSIUM CHLORIDE 20 MEQ, MAGNESIUM SULFATE 2 GM in SODIUM CHLORIDE 500 ML IV ONE (14:00)
[2022-07-08] MEDS ORDERED: FUROSEMIDE 40 MG/4 ML INJECTABLE VIAL IVPUSH ONE (14:00)
[2022-07-08 14:02] LABS: BILIRUBIN,DIRECT 0.1 mg/dL (0.0-0.2); CREATININE 0.7 mg/dL (0.55-1.3)
[2022-07-08 14:03] LABS: ANISOCYTOSIS 0; MACROCYTOSIS 0; TOT PROT 7.5 g/dl (6.4-8.2)
[2022-07-08 14:04] LABS: BILIRUBIN,TOTAL 0.4 mg/dL (0.2-1)
[2022-07-08] MEDS ORDERED: PORTA CATH FLUSH 10 ML IVPUSH PRN (14:36)
[2022-07-08] MEDS ORDERED: SODIUM CHLORIDE IV ONE (15:00)
[2022-07-08] MEDS ORDERED: CISPLATIN IV ONE (15:00)
[2022-07-08 17:53] VITALS: BP 138/86; PULSE 93; RESP 20
== END 2022-07-08 18:15 | disposition home or self-care (01) ==
LOC: JONCCHEMO 06:45
PROVIDERS: ATTEND Internal Medicine Hematology & Oncology
DX: Z51.11 Encounter for antineoplastic chemotherapy (principal); C23 Malignant neoplasm of gallbladder; C78.7 Secondary malignant neoplasm of liver and intrahepatic bile duct
CPT/HCPCS: 36415; 80048; 80076; 83735; 85025; 96367; 96375; 96413; 96417; J1453; J1756; J2469

== ENCOUNTER 2022-07-09 17:35 | Day surgery (SDC) | payer OTHER ==
[~2022-07-09 17:35] MED LIST: PEGFILGRASTIM-CBQV (UDENYCA) 6 MG/0.6 ML SYRINGE SQ ONE
[2022-07-09 18:31] VITALS: BP 154/89; PULSE 88; RESP 18; TEMP 98.4
== END 2022-07-09 18:31 | disposition home or self-care (01) ==
LOC: JONCCHEMO 17:35 → J7W 17:39 → JONCCHEMO 18:31
PROVIDERS: ATTEND Internal Medicine Hematology & Oncology
PROC: 3E013GC Introduction of Other Therapeutic Substance into Subcutaneous Tissue, Percutaneous Approach (ICD-10-PCS; principal; 2022-07-09)
DX: C23 Malignant neoplasm of gallbladder (principal); C78.7 Secondary malignant neoplasm of liver and intrahepatic bile duct; Z76.89 Persons encountering health services in other specified circumstances
CPT/HCPCS: 96372; Q5111

== ENCOUNTER 2022-07-22 09:05 | Day surgery (SDC) | payer OTHER ==
[~2022-07-22 09:05] MED LIST changes: -PEGFILGRASTIM-CBQV (UDENYCA) 6 MG/0.6 ML SYRINGE SQ ONE; +SODIUM CHLORIDE 1,000 ML IV ONE
[2022-07-22] MEDS ORDERED: IRON SUCROSE INJECTION 200 MG in SODIUM CHLORIDE 100 ML IVPB ONE (09:30)
[2022-07-22 09:45] LABS: HEMATOCRIT 36.6 % (32.4-45.2); HEMOGLOBIN 11.9 GM/dL (10.7-15.3); MCH 27.9 pg (25.7-33.7); MCHC 32.6 g/dl (32.0-36.0); MEAN CELL VOLUME 85.7 fl (80-96); MEAN PLT VOLUME 6.9 fl (7.5-11.1); PLATELET COUNT 357 10^3/uL (134-434); RBC 4.27 M/mm3 (3.60-5.2); RDW 15.3 % (11.6-15.6); WHITE BLOOD COUNT 19.6 K/mm3 (4.0-10.0)
[2022-07-22] MEDS ORDERED: FOSAPREPITANT DIMEGLUMINE 150 MG in SODIUM CHLORIDE 145 ML IVPB ONE (10:00)
[2022-07-22] MEDS ORDERED: DEXAMETHASONE SODIUM PHOSPHATE 10 MG in SODIUM CHLORIDE 50 ML IVPB ONE (10:00)
[2022-07-22] MEDS ORDERED: PALONOSETRON HCL 0.25 MG/5 ML VIAL IVPUSH ONE (10:00)
[2022-07-22 10:08] LABS: ALBUMIN 3.6 g/dl (3.4-5.0); BLOOD UREA NITROGEN 10.1 mg/dL (7-18); CALCIUM 9.3 mg/dL (8.5-10.1); MAGNESIUM 1.7 mg/dL (1.8-2.4)
[2022-07-22 10:11] LABS: BILIRUBIN,DIRECT 0.1 mg/dL (0.0-0.2); CREATININE 0.9 mg/dL (0.55-1.3)
[2022-07-22 10:13] LABS: BILIRUBIN,TOTAL 0.2 mg/dL (0.2-1); TOT PROT 7.1 g/dl (6.4-8.2)
[2022-07-22] MEDS ORDERED: CISPLATIN IV ONE (10:30)
[2022-07-22] MEDS ORDERED: SODIUM CHLORIDE IV ONE (10:30)
[2022-07-22] MEDS ORDERED: FUROSEMIDE IVPB ONE (11:00)
[2022-07-22] MEDS ORDERED: SODIUM CHLORIDE IVPB ONE ×2 (11:00→11:30)
[2022-07-22] MEDS ORDERED: GEMCITABINE HCL IVPB ONE (11:30)
[2022-07-22 11:34] LABS: ANISOCYTOSIS 1+; MACROCYTOSIS 0
[2022-07-22] MEDS ORDERED: POTASSIUM CHLORIDE 20 MEQ, MAGNESIUM SULFATE 2 GM in SODIUM CHLORIDE 500 ML IVPB ONE (12:30)
[2022-07-22 17:57] VITALS: TEMP 98
[2022-07-22 18:08] VITALS: BP 165/94; PULSE 84; RESP 18
[2022-07-22] MEDS ORDERED: PORTA CATH FLUSH 10 ML IVPUSH PRN (18:08)
== END 2022-07-22 17:35 | disposition home or self-care (01) ==
LOC: JONCCHEMO 09:05
PROVIDERS: ATTEND Internal Medicine Hematology & Oncology
PROC: 3E043GC Introduction of Other Therapeutic Substance into Central Vein, Percutaneous Approach (ICD-10-PCS; principal; 2022-07-22)
DX: C23 Malignant neoplasm of gallbladder (principal); C78.7 Secondary malignant neoplasm of liver and intrahepatic bile duct
CPT/HCPCS: 36415; 80048; 80076; 83735; 85025; 96365; 96366; 96375; J1453; J1756; J2469

== ENCOUNTER 2022-07-29 08:42 | Day surgery (SDC) | payer OTHER ==
[2022-07-29] MEDS ORDERED: SODIUM CHLORIDE 1,000 ML IV ONE (09:00)
[2022-07-29 09:09] LABS: BASO % 0.6 % (0-2.0); EOS % 0.3 % (0-4.5); HEMATOCRIT 34.9 % (32.4-45.2); HEMOGLOBIN 11.8 GM/dL (10.7-15.3); LYMPH % 51.4 % (8-40); MCH 28.8 pg (25.7-33.7); MCHC 33.8 g/dl (32.0-36.0); MEAN CELL VOLUME 85.2 fl (80-96); MEAN PLT VOLUME 7.1 fl (7.5-11.1); MONO % 8.1 % (3.8-10.2); NEUT % 39.6 % (42.8-82.8); PLATELET COUNT 427 10^3/uL (134-434); RDW 15.3 % (11.6-15.6); WHITE BLOOD COUNT 6.1 K/mm3 (4.0-10.0)
[2022-07-29] MEDS ORDERED: IRON SUCROSE INJECTION 200 MG in SODIUM CHLORIDE 100 ML IVPB ONE (09:30)
[2022-07-29 09:42] LABS: ALBUMIN 3.5 g/dl (3.4-5.0); BLOOD UREA NITROGEN 9.5 mg/dL (7-18); CALCIUM 9.2 mg/dL (8.5-10.1)
[2022-07-29 09:45] LABS: CREATININE 0.6 mg/dL (0.55-1.3)
[2022-07-29 09:47] LABS: BILIRUBIN,TOTAL 0.3 mg/dL (0.2-1); TOT PROT 7.1 g/dl (6.4-8.2)
[2022-07-29] MEDS ORDERED: FUROSEMIDE 40 MG/4 ML INJECTABLE VIAL IVPUSH ONE (10:00)
[2022-07-29] MEDS ORDERED: FOSAPREPITANT DIMEGLUMINE 150 MG in SODIUM CHLORIDE 145 ML IVPB ONE (10:00)
[2022-07-29] MEDS ORDERED: LORATADINE 10 MG TABLET PO ONE (10:00)
[2022-07-29] MEDS ORDERED: DEXAMETHASONE SODIUM PHOSPHATE 8 MG in SODIUM CHLORIDE 50 ML IVPB ONE (10:00)
[2022-07-29] MEDS ORDERED: PALONOSETRON HCL 0.25 MG/5 ML VIAL IVPUSH ONE (10:00)
[2022-07-29] MEDS ORDERED: SODIUM CHLORIDE IVPB ONE (10:30)
[2022-07-29] MEDS ORDERED: GEMCITABINE HCL IVPB ONE (10:30)
[2022-07-29] MEDS ORDERED: SODIUM CHLORIDE IV ONE (11:00)
[2022-07-29] MEDS ORDERED: CISPLATIN IV ONE (11:00)
[2022-07-29] MEDS ORDERED: POTASSIUM CHLORIDE 20 MEQ, MAGNESIUM SULFATE 2 GM in SODIUM CHLORIDE 500 ML IVPB ONE (12:00)
[2022-07-29 15:19] VITALS: BP 160/95; PULSE 77; RESP 18; TEMP 97.8
[2022-07-29] MEDS ORDERED: PORTA CATH FLUSH 10 ML IVPUSH PRN (16:33)
== END 2022-07-29 18:30 | disposition home or self-care (01) ==
LOC: JONCCHEMO 08:42
PROVIDERS: ATTEND Internal Medicine Hematology & Oncology
DX: Z51.11 Encounter for antineoplastic chemotherapy (principal); C23 Malignant neoplasm of gallbladder; C78.7 Secondary malignant neoplasm of liver and intrahepatic bile duct
CPT/HCPCS: 36415; 80053; 83735; 85025; 96367; 96375; 96413; 96417; J1453; J1756; J2469

== ENCOUNTER 2022-07-30 08:43 | Day surgery (SDC) | payer OTHER ==
[2022-07-30] MEDS ORDERED: LORATADINE 10 MG TABLET PO ONE (10:00)
[2022-07-30] MEDS ORDERED: PEGFILGRASTIM-CBQV (UDENYCA) 6 MG/0.6 ML SYRINGE SQ ONE (10:00)
[2022-07-30 17:26] VITALS: BP 154/90; PULSE 100; RESP 20; TEMP 98.3
== END 2022-07-30 13:30 | disposition home or self-care (01) ==
LOC: JONCCHEMO 08:43
PROVIDERS: ATTEND Internal Medicine Hematology & Oncology
PROC: 3E013GC Introduction of Other Therapeutic Substance into Subcutaneous Tissue, Percutaneous Approach (ICD-10-PCS; principal; 2022-07-30)
DX: C23 Malignant neoplasm of gallbladder (principal); C78.7 Secondary malignant neoplasm of liver and intrahepatic bile duct; Z76.89 Persons encountering health services in other specified circumstances
CPT/HCPCS: 96372; Q5111

== ENCOUNTER 2022-08-12 09:05 | Day surgery (SDC) | payer OTHER ==
[~2022-08-12 09:05] MED LIST changes: +IRON SUCROSE INJECTION 200 MG in SODIUM CHLORIDE 100 ML IVPB ONE
[2022-08-12 09:33] LABS: HEMATOCRIT 33.8 % (32.4-45.2); HEMOGLOBIN 11.2 GM/dL (10.7-15.3); MCH 28.8 pg (25.7-33.7); MCHC 33.2 g/dl (32.0-36.0); MEAN CELL VOLUME 86.6 fl (80-96); MEAN PLT VOLUME 7.2 fl (7.5-11.1); PLATELET COUNT 236 10^3/uL (134-434); RDW 16.1 % (11.6-15.6); WHITE BLOOD COUNT 17.5 K/mm3 (4.0-10.0)
[2022-08-12 09:49] LABS: BLOOD UREA NITROGEN 11.1 mg/dL (7-18)
[2022-08-12 09:50] LABS: ALBUMIN 3.7 g/dl (3.4-5.0); CALCIUM 8.9 mg/dL (8.5-10.1)
[2022-08-12 09:52] LABS: CREATININE 0.8 mg/dL (0.55-1.3)
[2022-08-12 09:54] LABS: BILIRUBIN,TOTAL 0.2 mg/dL (0.2-1); TOT PROT 7.1 g/dl (6.4-8.2)
[2022-08-12 09:57] LABS: BILIRUBIN,DIRECT 0.1 mg/dL (0.0-0.2)
[2022-08-12] MEDS ORDERED: FOSAPREPITANT DIMEGLUMINE 150 MG in SODIUM CHLORIDE 145 ML IVPB ONE (10:00)
[2022-08-12] MEDS ORDERED: PALONOSETRON HCL 0.25 MG/5 ML VIAL IVPUSH ONE (10:00)
[2022-08-12] MEDS ORDERED: DEXAMETHASONE SODIUM PHOSPHATE 10 MG in SODIUM CHLORIDE 50 ML IVPB ONE (10:00)
[2022-08-12] MEDS ORDERED: FUROSEMIDE 40 MG/4 ML INJECTABLE VIAL IVPUSH ONE (10:00)
[2022-08-12 10:13] LABS: ANISOCYTOSIS 0; MACROCYTOSIS 0
[2022-08-12] MEDS ORDERED: SODIUM CHLORIDE IV ONE (11:00)
[2022-08-12] MEDS ORDERED: CISPLATIN IV ONE (11:00)
[2022-08-12] MEDS ORDERED: GEMCITABINE HCL IS ONE (11:30)
[2022-08-12] MEDS ORDERED: SODIUM CHLORIDE IS ONE (11:30)
[2022-08-12] MEDS ORDERED: POTASSIUM CHLORIDE 20 MEQ, MAGNESIUM SULFATE 2 GM in SODIUM CHLORIDE 500 ML IVPB ONE (12:00)
[2022-08-12] MEDS ORDERED: PORTA CATH FLUSH 10 ML IVPUSH PRN (18:42)
[2022-08-12 18:43] VITALS: BP 145/88; PULSE 82; RESP 20; TEMP 98.1
== END 2022-08-12 18:15 | disposition home or self-care (01) ==
LOC: JONCCHEMO 09:05
PROVIDERS: ATTEND Internal Medicine Hematology & Oncology
DX: Z51.11 Encounter for antineoplastic chemotherapy (principal); C23 Malignant neoplasm of gallbladder; C78.7 Secondary malignant neoplasm of liver and intrahepatic bile duct
CPT/HCPCS: 36415; 80048; 80076; 83735; 85025; 86301; 96361; 96367; 96375; 96413; 96417; J1453; J1756; J2469

== ENCOUNTER 2022-08-19 08:55 | Day surgery (SDC) | payer OTHER ==
[2022-08-19] MEDS ORDERED: IRON SUCROSE INJECTION 200 MG in SODIUM CHLORIDE 100 ML IVPB ONE (09:00)
[2022-08-19] MEDS ORDERED: SODIUM CHLORIDE 1,000 ML IV ONE (09:00)
[2022-08-19 09:46] LABS: BASO % 1.1 % (0-2.0); EOS % 0.5 % (0-4.5); HEMATOCRIT 32.8 % (32.4-45.2); HEMOGLOBIN 10.8 GM/dL (10.7-15.3); LYMPH % 44.9 % (8-40); MCH 28.2 pg (25.7-33.7); MCHC 32.9 g/dl (32.0-36.0); MEAN CELL VOLUME 85.8 fl (80-96); MEAN PLT VOLUME 7.2 fl (7.5-11.1); MONO % 5.6 % (3.8-10.2); NEUT % 47.9 % (42.8-82.8); PLATELET COUNT 346 10^3/uL (134-434); RBC 3.82 M/mm3 (3.60-5.2); RDW 17.5 % (11.6-15.6); WHITE BLOOD COUNT 4.5 K/mm3 (4.0-10.0)
[2022-08-19 10:13] LABS: CALCIUM 9.4 mg/dL (8.5-10.1)
[2022-08-19 10:14] LABS: ALBUMIN 3.6 g/dl (3.4-5.0); MAGNESIUM 1.7 mg/dL (1.8-2.4)
[2022-08-19 10:15] LABS: BLOOD UREA NITROGEN 10.4 mg/dL (7-18)
[2022-08-19 10:16] LABS: BILIRUBIN,DIRECT 0.1 mg/dL (0.0-0.2)
[2022-08-19 10:17] LABS: CREATININE 0.7 mg/dL (0.55-1.3)
[2022-08-19 10:18] LABS: BILIRUBIN,TOTAL 0.4 mg/dL (0.2-1); TOT PROT 6.9 g/dl (6.4-8.2)
[2022-08-19] MEDS ORDERED: FOSAPREPITANT DIMEGLUMINE 150 MG in SODIUM CHLORIDE 145 ML IVPB ONE (10:30)
[2022-08-19] MEDS ORDERED: DEXAMETHASONE SODIUM PHOSPHATE 8 MG in SODIUM CHLORIDE 50 ML IVPB ONE (10:30)
[2022-08-19] MEDS ORDERED: PALONOSETRON HCL 0.25 MG/5 ML VIAL IVPUSH ONE (10:30)
[2022-08-19] MEDS ORDERED: CISPLATIN IV ONE (11:00)
[2022-08-19] MEDS ORDERED: SODIUM CHLORIDE IV ONE (11:00)
[2022-08-19] MEDS ORDERED: SODIUM CHLORIDE IVPB ONE (12:00)
[2022-08-19] MEDS ORDERED: GEMCITABINE HCL IVPB ONE (12:00)
[2022-08-19] MEDS ORDERED: POTASSIUM CHLORIDE 20 MEQ, MAGNESIUM SULFATE 2 GM in SODIUM CHLORIDE 500 ML IVPB ONE (13:00)
[2022-08-19] MEDS ORDERED: FUROSEMIDE 40 MG/4 ML INJECTABLE VIAL IVPUSH ONE (14:00)
[2022-08-19 16:59] VITALS: RESP 18
[2022-08-19] MEDS ORDERED: PORTA CATH FLUSH 10 ML IVPUSH PRN ×2 (17:12→17:58)
[2022-08-19 17:57] VITALS: BP 146/86; PULSE 93; TEMP 98.5
== END 2022-08-19 18:00 | disposition home or self-care (01) ==
LOC: JONCCHEMO 08:55
PROVIDERS: ATTEND Internal Medicine Hematology & Oncology
DX: Z51.11 Encounter for antineoplastic chemotherapy (principal); C23 Malignant neoplasm of gallbladder; C78.7 Secondary malignant neoplasm of liver and intrahepatic bile duct
CPT/HCPCS: 36415; 80048; 80076; 83735; 85025; 96366; 96367; 96375; 96413; 96417; J1453; J1756; J2469

== ENCOUNTER 2022-09-10 08:53 | Day surgery (SDC) | payer OTHER ==
[2022-09-10] MEDS ORDERED: IRON SUCROSE INJECTION 200 MG in SODIUM CHLORIDE 100 ML IVPB ONE (12:30)
[2022-09-10] MEDS ORDERED: SODIUM CHLORIDE 1,000 ML IV ONE (12:30)
[2022-09-10] MEDS ORDERED: PALONOSETRON HCL 0.25 MG/5 ML VIAL IVPUSH ONE (13:00)
[2022-09-10] MEDS ORDERED: DEXAMETHASONE SODIUM PHOSPHATE 10 MG in SODIUM CHLORIDE 50 ML IVPB ONE (13:00)
[2022-09-10] MEDS ORDERED: FOSAPREPITANT DIMEGLUMINE 150 MG in SODIUM CHLORIDE 145 ML IVPB ONE (13:00)
[2022-09-10] MEDS ORDERED: SODIUM CHLORIDE IVPB ONE (13:30)
[2022-09-10] MEDS ORDERED: GEMCITABINE HCL IVPB ONE (13:30)
[2022-09-10] MEDS ORDERED: FUROSEMIDE 40 MG/4 ML INJECTABLE VIAL IVPUSH ONE (14:00)
[2022-09-10] MEDS ORDERED: CISPLATIN IV ONE (14:00)
[2022-09-10] MEDS ORDERED: SODIUM CHLORIDE IV ONE (14:00)
[2022-09-10] MEDS ORDERED: POTASSIUM CHLORIDE 20 MEQ, MAGNESIUM SULFATE 2 GM in SODIUM CHLORIDE 500 ML IVPB ONE (15:00)
[2022-09-10 18:53] VITALS: RESP 18; TEMP 97.8
[2022-09-10] MEDS ORDERED: PORTA CATH FLUSH 10 ML IVPUSH PRN (18:53)
[2022-09-11 07:15] VITALS: BP 135/83; PULSE 107
== END 2022-09-10 18:15 | disposition home or self-care (01) ==
LOC: JONCCHEMO 08:53
PROVIDERS: ATTEND Internal Medicine Hematology & Oncology
PROC: 3E0W305 Introduction of Other Antineoplastic into Lymphatics, Percutaneous Approach (ICD-10-PCS; principal; 2022-09-10)
DX: Z51.11 Encounter for antineoplastic chemotherapy (principal); C23 Malignant neoplasm of gallbladder; C78.7 Secondary malignant neoplasm of liver and intrahepatic bile duct
CPT/HCPCS: 96361; 96367; 96375; 96413; 96417; J1453; J1756; J2469

== ENCOUNTER 2022-09-11 18:29 | Day surgery (SDC) | payer OTHER ==
[2022-09-10 09:31] LABS: BASO % 0.6 % (0-2.0); EOS % 1.7 % (0-4.5); HEMATOCRIT 36.8 % (32.4-45.2); HEMOGLOBIN 12.2 GM/dL (10.7-15.3); LYMPH % 33.6 % (8-40); MCH 30.2 pg (25.7-33.7); MCHC 33.3 g/dl (32.0-36.0); MEAN CELL VOLUME 90.7 fl (80-96); MEAN PLT VOLUME 6.8 fl (7.5-11.1); MONO % 10.3 % (3.8-10.2); NEUT % 53.8 % (42.8-82.8); PLATELET COUNT 419 10^3/uL (134-434); RBC 4.05 M/mm3 (3.60-5.2); RDW 19.8 % (11.6-15.6); WHITE BLOOD COUNT 7.3 K/mm3 (4.0-10.0)
[2022-09-10 09:54] LABS: BLOOD UREA NITROGEN 9.9 mg/dL (7-18); CALCIUM 9.4 mg/dL (8.5-10.1)
[2022-09-10 09:55] LABS: ALBUMIN 3.6 g/dl (3.4-5.0); MAGNESIUM 1.7 mg/dL (1.8-2.4)
[2022-09-10 09:57] LABS: BILIRUBIN,DIRECT 0.2 mg/dL (0.0-0.2)
[2022-09-10 09:58] LABS: CREATININE 0.8 mg/dL (0.55-1.3)
[2022-09-10 09:59] LABS: BILIRUBIN,TOTAL 0.3 mg/dL (0.2-1)
[~2022-09-11 18:29] MED LIST changes: +CISPLATIN IV ONE; +DEXAMETHASONE IVPB ONE; +DEXAMETHASONE SODIUM PHOSPHATE 10 MG in SODIUM CHLORIDE 50 ML IVPB ONE; +FOSAPREPITANT DIMEGLUMINE 150 MG in SODIUM CHLORIDE 145 ML IVPB ONE; +FUROSEMIDE 40 MG/4 ML INJECTABLE VIAL IVPUSH ONE; +GEMCITABINE HCL IVPB ONE; +MAGNESIUM SULFATE IN WATER 2 GM/50 ML IVPB IVPB ONE; +ONDANSETRON IVPB ONE; +PALONOSETRON HCL 0.25 MG/5 ML VIAL IVPUSH ONE; +POTASSIUM CHLORIDE 20 MEQ, MAGNESIUM SULFATE 2 GM in SODIUM CHLORIDE 500 ML IVPB ONE; +POTASSIUM CHLORIDE IVPB ONE; +SODIUM CHLORIDE 0.45% IVPB ONE; +SODIUM CHLORIDE IV ONE; +SODIUM CHLORIDE IVPB ONE
[2022-09-11 19:31] VITALS: BP 162/87; PULSE 97; RESP 18; TEMP 98.7
[2022-09-11] MEDS ORDERED: PORTA CATH FLUSH 10 ML IVPUSH PRN (19:31)
== END 2022-09-11 18:35 | disposition home or self-care (01) ==
LOC: JONCNONCHE 18:29
PROVIDERS: ATTEND Internal Medicine Hematology & Oncology
PROC: 3E043GC Introduction of Other Therapeutic Substance into Central Vein, Percutaneous Approach (ICD-10-PCS; principal; 2022-09-11)
DX: C23 Malignant neoplasm of gallbladder (principal); C78.7 Secondary malignant neoplasm of liver and intrahepatic bile duct
CPT/HCPCS: 36415; 80048; 80076; 83735; 85025; 96365; 96366; 96375; J1100

== ENCOUNTER 2022-09-17 12:19 | Day surgery (SDC) | payer OTHER ==
[2022-09-17] MEDS ORDERED: DEXAMETHASONE SODIUM PHOSPHATE 8 MG in SODIUM CHLORIDE 50 ML IVPB ONE (13:00)
[2022-09-17] MEDS ORDERED: IRON SUCROSE INJECTION 200 MG in SODIUM CHLORIDE 100 ML IVPB ONE (13:00)
[2022-09-17] MEDS ORDERED: SODIUM CHLORIDE 1,000 ML IV ONE (13:00)
[2022-09-17] MEDS ORDERED: FOSAPREPITANT DIMEGLUMINE 150 MG in SODIUM CHLORIDE 145 ML IVPB ONE (13:00)
[2022-09-17] MEDS ORDERED: PALONOSETRON HCL 0.25 MG/5 ML VIAL IVPUSH ONE (13:00)
[2022-09-17] MEDS ORDERED: FUROSEMIDE 10 MG/1 ML VIAL (4 ML VIAL) IVPUSH ONE (13:00)
[2022-09-17] MEDS ORDERED: SODIUM CHLORIDE IV ONE (13:30)
[2022-09-17] MEDS ORDERED: CISPLATIN IV ONE (13:30)
[2022-09-17 13:33] LABS: BASO % 0.6 % (0-2.0); EOS % 0.9 % (0-4.5); HEMATOCRIT 37.1 % (32.4-45.2); HEMOGLOBIN 12.2 GM/dL (10.7-15.3); LYMPH % 56.1 % (8-40); MCH 29.5 pg (25.7-33.7); MCHC 32.9 g/dl (32.0-36.0); MEAN CELL VOLUME 89.7 fl (80-96); MEAN PLT VOLUME 7.1 fl (7.5-11.1); NEUT % 36.4 % (42.8-82.8); PLATELET COUNT 210 10^3/uL (134-434); RBC 4.13 M/mm3 (3.60-5.2); RDW 18.5 % (11.6-15.6); WHITE BLOOD COUNT 5.5 K/mm3 (4.0-10.0)
[2022-09-17 13:50] LABS: ALBUMIN 3.6 g/dl (3.4-5.0); BLOOD UREA NITROGEN 8.4 mg/dL (7-18); CALCIUM 9.4 mg/dL (8.5-10.1); MAGNESIUM 1.8 mg/dL (1.8-2.4)
[2022-09-17 13:53] LABS: BILIRUBIN,DIRECT 0.1 mg/dL (0.0-0.2); CREATININE 0.7 mg/dL (0.55-1.3)
[2022-09-17 13:55] LABS: BILIRUBIN,TOTAL 0.2 mg/dL (0.2-1); TOT PROT 6.9 g/dl (6.4-8.2)
[2022-09-17] MEDS ORDERED: SODIUM CHLORIDE IS ONE (14:30)
[2022-09-17] MEDS ORDERED: GEMCITABINE HCL IS ONE (14:30)
[2022-09-17] MEDS ORDERED: POTASSIUM CHLORIDE 20 MEQ, MAGNESIUM SULFATE 2 GM in SODIUM CHLORIDE 500 ML IVPB ONE (15:00)
[2022-09-17 16:13] VITALS: RESP 20; TEMP 98.2
[2022-09-17] MEDS ORDERED: PORTA CATH FLUSH 10 ML IVPUSH PRN ×2 (16:16→16:45)
[2022-09-17 18:35] VITALS: BP 132/81; PULSE 97
== END 2022-09-17 18:52 | disposition home or self-care (01) ==
LOC: JONCNONCHE 12:19
PROVIDERS: ATTEND Internal Medicine Hematology & Oncology
DX: Z51.11 Encounter for antineoplastic chemotherapy (principal); C23 Malignant neoplasm of gallbladder; C78.7 Secondary malignant neoplasm of liver and intrahepatic bile duct; E11.9 Type 2 diabetes mellitus without complications; Z79.4 Long term (current) use of insulin
CPT/HCPCS: 36415; 80053; 80076; 83735; 85025; 96361; 96366; 96367; 96375; 96413; 96417; J1453; J1756; J2469

== ENCOUNTER 2022-11-18 11:31 | Day surgery (SDC) | payer OTHER ==
[~2022-11-18 11:31] MED LIST changes: +ATROPINE SO4 0.4 MG/1 ML VIAL IVPUSH ONE; -DEXAMETHASONE IVPB ONE; +DEXAMETHASONE SODIUM PHOSPHATE 8 MG in SODIUM CHLORIDE 50 ML IVPB ONE; -MAGNESIUM SULFATE IN WATER 2 GM/50 ML IVPB IVPB ONE; -ONDANSETRON IVPB ONE; -POTASSIUM CHLORIDE IVPB ONE; -SODIUM CHLORIDE 0.45% IVPB ONE; +SODIUM CHLORIDE 250 ML IV ONE
[2022-11-18] MEDS ORDERED: IRINOTECAN HCL 380 MG in DEXTROSE 5%-WATER - 500 ML IVPB ONE (12:00)
[2022-11-18] MEDS ORDERED: LEUCOVORIN INJECTION - 852 MG in DEXTROSE 5%-WATER - 250 ML IVPB ONE (12:00)
[2022-11-18 12:19] LABS: BASO % 0.2 % (0-2.0); EOS % 1.1 % (0-4.5); HEMATOCRIT 39.4 % (32.4-45.2); LYMPH % 31.2 % (8-40); MCH 30.2 pg (25.7-33.7); MCHC 32.9 g/dl (32.0-36.0); MEAN CELL VOLUME 91.8 fl (80-96); MEAN PLT VOLUME 7.3 fl (7.5-11.1); MONO % 5.1 % (3.8-10.2); NEUT % 62.4 % (42.8-82.8); PLATELET COUNT 284 10^3/uL (134-434); RBC 4.29 M/mm3 (3.60-5.2); RDW 15.8 % (11.6-15.6); WHITE BLOOD COUNT 9.2 K/mm3 (4.0-10.0)
[2022-11-18 13:50] LABS: ALBUMIN 3.6 g/dl (3.4-5.0); BLOOD UREA NITROGEN 11.2 mg/dL (7-18); MAGNESIUM 1.8 mg/dL (1.8-2.4)
[2022-11-18 13:51] LABS: CALCIUM 9.7 mg/dL (8.5-10.1)
[2022-11-18 13:52] LABS: BILIRUBIN,DIRECT 0.1 mg/dL (0.0-0.2); CREATININE 0.9 mg/dL (0.55-1.3)
[2022-11-18 13:54] LABS: BILIRUBIN,TOTAL 0.4 mg/dL (0.2-1); TOT PROT 7.5 g/dl (6.4-8.2)
[2022-11-18] MEDS ORDERED: FLUOROURACIL 2,500 MG/50 ML VIAL IVPUSH ONE (14:00)
[2022-11-18] MEDS ORDERED: FLUOROURACIL 5,100 MG in SODIUM CHLORIDE 3.8 ML CP ONE (14:15)
[2022-11-18 15:54] VITALS: TEMP 97.9
[2022-11-18] MEDS ORDERED: PORTA CATH FLUSH 10 ML IVPUSH PRN ×2 (15:54→18:13)
[2022-11-18 18:13] VITALS: BP 132/89; PULSE 100; RESP 20
[2022-11-19] MEDS ORDERED: PORTA CATH FLUSH 10 ML IVPUSH PRN (07:51)
== END 2022-11-18 18:36 | disposition home or self-care (01) ==
LOC: JONCCHEMO 11:31
PROVIDERS: ATTEND Internal Medicine Hematology & Oncology
DX: Z51.11 Encounter for antineoplastic chemotherapy (principal); C23 Malignant neoplasm of gallbladder; C78.7 Secondary malignant neoplasm of liver and intrahepatic bile duct; Z79.4 Long term (current) use of insulin
CPT/HCPCS: 36415; 80048; 80076; 82728; 83540; 83550; 83735; 85025; 86301; 96366; 96367; 96375; 96411; 96413; G0498; J2469; J9206

== ENCOUNTER 2022-11-20 15:42 | Day surgery (SDC) | payer OTHER ==
[~2022-11-20 15:42] MED LIST changes: -ATROPINE SO4 0.4 MG/1 ML VIAL IVPUSH ONE; -CISPLATIN IV ONE; -DEXAMETHASONE SODIUM PHOSPHATE 10 MG in SODIUM CHLORIDE 50 ML IVPB ONE; -DEXAMETHASONE SODIUM PHOSPHATE 8 MG in SODIUM CHLORIDE 50 ML IVPB ONE; -FOSAPREPITANT DIMEGLUMINE 150 MG in SODIUM CHLORIDE 145 ML IVPB ONE; -FUROSEMIDE 40 MG/4 ML INJECTABLE VIAL IVPUSH ONE; -GEMCITABINE HCL IVPB ONE; +HYDROCORTISONE 1% TOPICAL CREAM 30 GM TUBE TP ONE; -IRON SUCROSE INJECTION 200 MG in SODIUM CHLORIDE 100 ML IVPB ONE; -PALONOSETRON HCL 0.25 MG/5 ML VIAL IVPUSH ONE; -POTASSIUM CHLORIDE 20 MEQ, MAGNESIUM SULFATE 2 GM in SODIUM CHLORIDE 500 ML IVPB ONE; -SODIUM CHLORIDE 1,000 ML IV ONE; -SODIUM CHLORIDE 250 ML IV ONE; -SODIUM CHLORIDE IV ONE; -SODIUM CHLORIDE IVPB ONE
[2022-11-20] MEDS ORDERED: MAGNESIUM SULFATE IN WATER 2 GM/50 ML IVPB IVPB ONE (15:45)
[2022-11-20] MEDS ORDERED: SODIUM CHLORIDE 0.9%/KCL 20 MEQ/1,000 ML INFUS.BAG IV ONE (15:45)
[2022-11-20] MEDS ORDERED: KCL 10 MEQ IVPB 10 MEQ/100 ML INFUS.BAG IVPB ONE (16:15)
[2022-11-20] MEDS ORDERED: SODIUM CHLORIDE 1,000 ML IV ONE (16:15)
[2022-11-20 18:52] VITALS: BP 139/84; PULSE 88; RESP 18; TEMP 98.3
[2022-11-20] MEDS ORDERED: PORTA CATH FLUSH 10 ML IVPUSH PRN (18:55)
== END 2022-11-20 19:04 | disposition home or self-care (01) ==
LOC: JONCCHEMO 15:42
PROVIDERS: ATTEND Internal Medicine Hematology & Oncology
PROC: 3E043GC Introduction of Other Therapeutic Substance into Central Vein, Percutaneous Approach (ICD-10-PCS; principal; 2022-11-20)
DX: C23 Malignant neoplasm of gallbladder (principal); C78.7 Secondary malignant neoplasm of liver and intrahepatic bile duct; E11.9 Type 2 diabetes mellitus without complications; Z79.4 Long term (current) use of insulin
CPT/HCPCS: 96365; 96367

== ENCOUNTER 2022-12-02 10:46 | Day surgery (SDC) | payer OTHER ==
[~2022-12-02 10:46] MED LIST changes: +ATROPINE SO4 0.4 MG/1 ML VIAL IVPUSH ONE; +DEXAMETHASONE SODIUM PHOSPHATE 8 MG in SODIUM CHLORIDE 50 ML IVPB ONE; -HYDROCORTISONE 1% TOPICAL CREAM 30 GM TUBE TP ONE; +IRINOTECAN HCL 380 MG in DEXTROSE 5%-WATER - 500 ML IVPB ONE; +LEUCOVORIN INJECTION - 852 MG in DEXTROSE 5%-WATER - 250 ML IVPB ONE; +PALONOSETRON HCL 0.25 MG/5 ML VIAL IVPUSH ONE; +SODIUM CHLORIDE 250 ML IV ONE
[2022-12-02 11:32] LABS: BASO % 0.2 % (0-2.0); EOS % 0.6 % (0-4.5); HEMATOCRIT 36.4 % (32.4-45.2); HEMOGLOBIN 12.3 GM/dL (10.7-15.3); LYMPH % 30.8 % (8-40); MCH 30.7 pg (25.7-33.7); MCHC 33.9 g/dl (32.0-36.0); MEAN CELL VOLUME 90.5 fl (80-96); MEAN PLT VOLUME 6.3 fl (7.5-11.1); MONO % 5.1 % (3.8-10.2); NEUT % 63.3 % (42.8-82.8); PLATELET COUNT 201 10^3/uL (134-434); RBC 4.02 M/mm3 (3.60-5.2); RDW 14.9 % (11.6-15.6); WHITE BLOOD COUNT 6.3 K/mm3 (4.0-10.0)
[2022-12-02] MEDS ORDERED: FLUOROURACIL 2,500 MG/50 ML VIAL IVPUSH ONE (12:00)
[2022-12-02] MEDS ORDERED: FLUOROURACIL 5,100 MG in SODIUM CHLORIDE 3.8 ML CP ONE (12:15)
[2022-12-02 12:20] LABS: CALCIUM 9.6 mg/dL (8.5-10.1)
[2022-12-02 12:21] LABS: ALBUMIN 3.7 g/dl (3.4-5.0); BLOOD UREA NITROGEN 7.4 mg/dL (7-18); MAGNESIUM 1.8 mg/dL (1.8-2.4)
[2022-12-02 12:24] LABS: BILIRUBIN,DIRECT 0.2 mg/dL (0.0-0.2); CREATININE 0.9 mg/dL (0.55-1.3)
[2022-12-02 12:25] LABS: BILIRUBIN,TOTAL 0.6 mg/dL (0.2-1)
[2022-12-02 12:26] LABS: TOT PROT 7.3 g/dl (6.4-8.2)
[2022-12-02] MEDS ORDERED: INSULIN (NOVOLOG) ASPART 100 UNITS/ML 10ML VIAL SQ ONE (13:00)
[2022-12-02 18:08] VITALS: BP 137/90; PULSE 90; RESP 18; TEMP 98.4
[2022-12-02] MEDS ORDERED: PORTA CATH FLUSH 10 ML IVPUSH PRN (18:08)
== END 2022-12-02 17:00 | disposition home or self-care (01) ==
LOC: JONCCHEMO 10:46
PROVIDERS: ATTEND Internal Medicine Hematology & Oncology
DX: Z51.11 Encounter for antineoplastic chemotherapy (principal); C23 Malignant neoplasm of gallbladder; C78.7 Secondary malignant neoplasm of liver and intrahepatic bile duct; E11.9 Type 2 diabetes mellitus without complications; Z79.4 Long term (current) use of insulin
CPT/HCPCS: 36415; 80048; 80076; 83735; 85025; 96367; 96375; 96411; 96413; 96415; G0498; J2469; J9206

== ENCOUNTER 2022-12-04 08:27 | Day surgery (SDC) | payer OTHER ==
[~2022-12-04 08:27] MED LIST changes: -ATROPINE SO4 0.4 MG/1 ML VIAL IVPUSH ONE; +CISPLATIN IV ONE; +DEXAMETHASONE SODIUM PHOSPHATE 10 MG in SODIUM CHLORIDE 50 ML IVPB ONE; -DEXAMETHASONE SODIUM PHOSPHATE 8 MG in SODIUM CHLORIDE 50 ML IVPB ONE; +FOSAPREPITANT DIMEGLUMINE 150 MG in SODIUM CHLORIDE 145 ML IVPB ONE; +FUROSEMIDE 40 MG/4 ML INJECTABLE VIAL IVPUSH ONE; +GEMCITABINE HCL IVPB ONE; -IRINOTECAN HCL 380 MG in DEXTROSE 5%-WATER - 500 ML IVPB ONE; +IRON SUCROSE INJECTION 200 MG in SODIUM CHLORIDE 100 ML IVPB ONE; -LEUCOVORIN INJECTION - 852 MG in DEXTROSE 5%-WATER - 250 ML IVPB ONE; +POTASSIUM CHLORIDE 20 MEQ, MAGNESIUM SULFATE 2 GM in SODIUM CHLORIDE 500 ML IVPB ONE; +SODIUM CHLORIDE 1,000 ML IV ONE; -SODIUM CHLORIDE 250 ML IV ONE; +SODIUM CHLORIDE IV ONE; +SODIUM CHLORIDE IVPB ONE
[2022-12-04] MEDS ORDERED: SODIUM CHLORIDE IVPB ONE (09:00)
[2022-12-04] MEDS ORDERED: MAGNESIUM SULFATE IVPB ONE (09:00)
[2022-12-04] MEDS ORDERED: POTASSIUM CHLORIDE IVPB ONE (09:00)
[2022-12-04 17:47] VITALS: TEMP 98.2
[2022-12-04 17:54] VITALS: BP 122/71; PULSE 86; RESP 18
[2022-12-04] MEDS ORDERED: PORTA CATH FLUSH 10 ML IVPUSH PRN (17:54)
== END 2022-12-04 19:11 | disposition home or self-care (01) ==
LOC: JONCCHEMO 08:27
PROVIDERS: ATTEND Internal Medicine Hematology & Oncology
PROC: 3E0437Z Introduction of Electrolytic and Water Balance Substance into Central Vein, Percutaneous Approach (ICD-10-PCS; principal; 2022-12-04)
DX: C23 Malignant neoplasm of gallbladder (principal); C78.7 Secondary malignant neoplasm of liver and intrahepatic bile duct; E11.9 Type 2 diabetes mellitus without complications; Z79.4 Long term (current) use of insulin
CPT/HCPCS: 72040-TC; 73030-TC-LT-FY; 96360; 96361

== ENCOUNTER 2022-12-16 10:27 | Emergency (ER) | payer OTHER ==
[2022-12-16 10:36] VITALS: BMI 34.8
[2022-12-16] MEDS ORDERED: ACETAMINOPHEN 1000 MG/100 ML BAG IVPB ONE (11:44)
[2022-12-16] MEDS ORDERED: SODIUM CHLORIDE 0.9% 500 ML INFUS.BAG IV ONE (11:44)
[2022-12-16] MEDS ORDERED: ONDANSETRON 4 MG/2 ML VIAL IVPUSH ONE (11:47)
[2022-12-16] MEDS ORDERED: ACETAMINOPHEN INJECTION 100 ML IVPB ONE (11:56)
[2022-12-16] MEDS ORDERED: ONDANSETRON 4 MG/2 ML VIAL ONE (11:56)
[2022-12-16 12:28] LABS: BASO % 0.2 % (0-2.0); EOS % 0.3 % (0-4.5); HEMATOCRIT 37.3 % (32.4-45.2); HEMOGLOBIN 12.8 GM/dL (10.7-15.3); LYMPH % 24.3 % (8-40); MCH 31.1 pg (25.7-33.7); MCHC 34.2 g/dl (32.0-36.0); MEAN CELL VOLUME 90.9 fl (80-96); MEAN PLT VOLUME 6.7 fl (7.5-11.1); MONO % 5.7 % (3.8-10.2); NEUT % 69.5 % (42.8-82.8); PLATELET COUNT 175 10^3/uL (134-434); RDW 15.4 % (11.6-15.6); WHITE BLOOD COUNT 8.4 K/mm3 (4.0-10.0)
[2022-12-16 12:47] LABS: BLOOD UREA NITROGEN 8.7 mg/dL (7-18); CALCIUM 9.3 mg/dL (8.5-10.1)
[2022-12-16 12:48] LABS: ALBUMIN 3.9 g/dl (3.4-5.0)
[2022-12-16 12:50] LABS: CREATININE 0.9 mg/dL (0.55-1.3)
[2022-12-16 12:52] LABS: BILIRUBIN,TOTAL 0.6 mg/dL (0.2-1); TOT PROT 7.5 g/dl (6.4-8.2)
[2022-12-16] MEDS ORDERED: morphine CARPU-JECT 4 MG/1 ML DISP.SYRIN IVPUSH ONE (16:30)
[2022-12-16] MEDS ORDERED: morphine SULFATE 4 MG/ML VIAL ONE (16:33)
[2022-12-16] MEDS ORDERED: oxyCODONE HCL 5 MG TABLET ONE ×2 (16:35→16:40)
[2022-12-16] MEDS: oxyCODONE HCL 5 MG TABLET PO ONE ×2 (16:58→17:31)
[2022-12-16 18:50] VITALS: BP 144/74; PULSE 68; RESP 18; TEMP 98
== END 2022-12-16 18:50 | disposition home or self-care (01) ==
LOC: JER 10:27
PROC: 3E033GC Introduction of Other Therapeutic Substance into Peripheral Vein, Percutaneous Approach (ICD-10-PCS; principal; 2022-12-16)
DX: R10.13 Epigastric pain (principal); K76.89 Other specified diseases of liver
CPT/HCPCS: 36415; 71045-TC-FY; 74176-TC; 80053; 83690; 84484; 84703; 85025; 99285-25

== ENCOUNTER 2022-12-23 11:46 | Day surgery (SDC) | payer OTHER ==
[~2022-12-23 11:46] MED LIST changes: +ATROPINE SO4 0.4 MG/1 ML VIAL SQ ONE; -CISPLATIN IV ONE; -DEXAMETHASONE SODIUM PHOSPHATE 10 MG in SODIUM CHLORIDE 50 ML IVPB ONE; +DEXAMETHASONE SODIUM PHOSPHATE 8 MG in SODIUM CHLORIDE 50 ML IVPB ONE; +DEXTROSE 5% IVPB ONE; +FLUOROURACIL 2,500 MG/50 ML VIAL IVPUSH ONE; +FLUOROURACIL CP ONE; -FOSAPREPITANT DIMEGLUMINE 150 MG in SODIUM CHLORIDE 145 ML IVPB ONE; -FUROSEMIDE 40 MG/4 ML INJECTABLE VIAL IVPUSH ONE; -GEMCITABINE HCL IVPB ONE; +IRINOTECAN HCL 380 MG in DEXTROSE 5%-WATER - 500 ML IVPB ONE; -IRON SUCROSE INJECTION 200 MG in SODIUM CHLORIDE 100 ML IVPB ONE; +LEUCOVORIN CALCIUM IVPB ONE; -POTASSIUM CHLORIDE 20 MEQ, MAGNESIUM SULFATE 2 GM in SODIUM CHLORIDE 500 ML IVPB ONE; -SODIUM CHLORIDE 1,000 ML IV ONE; +SODIUM CHLORIDE 250 ML IV ONE; +SODIUM CHLORIDE CP ONE; -SODIUM CHLORIDE IV ONE; -SODIUM CHLORIDE IVPB ONE; +WATER IVPB ONE
[2022-12-23 12:21] LABS: BASO % 0.2 % (0-2.0); EOS % 0.4 % (0-4.5); HEMATOCRIT 36.2 % (32.4-45.2); HEMOGLOBIN 12.3 GM/dL (10.7-15.3); LYMPH % 35.5 % (8-40); MCH 30.7 pg (25.7-33.7); MEAN CELL VOLUME 90.2 fl (80-96); MEAN PLT VOLUME 7.3 fl (7.5-11.1); MONO % 7.9 % (3.8-10.2); PLATELET COUNT 269 10^3/uL (134-434); RBC 4.02 M/mm3 (3.60-5.2); RDW 15.2 % (11.6-15.6)
[2022-12-23] MEDS ORDERED: FLUOROURACIL 2,500 MG/50 ML VIAL IVPUSH ONE (12:30)
[2022-12-23 12:46] LABS: ALBUMIN 3.5 g/dl (3.4-5.0); BLOOD UREA NITROGEN 9.1 mg/dL (7-18); CALCIUM 9.3 mg/dL (8.5-10.1); MAGNESIUM 1.9 mg/dL (1.8-2.4)
[2022-12-23 12:49] LABS: BILIRUBIN,DIRECT 0.1 mg/dL (0.0-0.2)
[2022-12-23 12:50] LABS: BILIRUBIN,TOTAL 0.4 mg/dL (0.2-1); TOT PROT 7.7 g/dl (6.4-8.2)
[2022-12-23] MEDS ORDERED: IRON SUCROSE INJECTION 200 MG in SODIUM CHLORIDE 90 ML IVPB ONE (12:57)
[2022-12-23] MEDS ORDERED: INSULIN (NOVOLOG) ASPART 100 UNITS/ML 10ML VIAL SQ ONE (12:57)
[2022-12-23] MEDS ORDERED: FLUOROURACIL CP ONE (13:00)
[2022-12-23] MEDS ORDERED: SODIUM CHLORIDE CP ONE (13:00)
[2022-12-23] MEDS ORDERED: ALTEPLASE (CATHFLO) 2 MG/2 ML VIAL NR ONE (17:25)
[2022-12-23] MEDS ORDERED: PORTA CATH FLUSH 10 ML IVPUSH PRN (17:51)
[2022-12-23 17:52] VITALS: BP 153/90; PULSE 113; RESP 20; TEMP 98.3
== END 2022-12-23 18:30 | disposition home or self-care (01) ==
LOC: JONCCHEMO 11:46
PROVIDERS: ATTEND Internal Medicine Hematology & Oncology
DX: Z51.11 Encounter for antineoplastic chemotherapy (principal); C23 Malignant neoplasm of gallbladder; C78.7 Secondary malignant neoplasm of liver and intrahepatic bile duct; E11.9 Type 2 diabetes mellitus without complications
CPT/HCPCS: 36415; 80048; 80076; 82728; 82962; 83540; 83550; 83735; 85025; 96366; 96367; 96375; 96413; G0498; J1756; J2469; J2997; J9206

== ENCOUNTER 2022-12-25 12:21 | Day surgery (SDC) | payer OTHER ==
[~2022-12-25 12:21] MED LIST changes: -ATROPINE SO4 0.4 MG/1 ML VIAL SQ ONE; -DEXAMETHASONE SODIUM PHOSPHATE 8 MG in SODIUM CHLORIDE 50 ML IVPB ONE; -DEXTROSE 5% IVPB ONE; -FLUOROURACIL 2,500 MG/50 ML VIAL IVPUSH ONE; -FLUOROURACIL CP ONE; -IRINOTECAN HCL 380 MG in DEXTROSE 5%-WATER - 500 ML IVPB ONE; +KCL 10 MEQ IVPB 10 MEQ/100 ML INFUS.BAG IVPB ONE; -LEUCOVORIN CALCIUM IVPB ONE; +MAGNESIUM SULFATE IN WATER 2 GM/50 ML IVPB IVPB ONE; -PALONOSETRON HCL 0.25 MG/5 ML VIAL IVPUSH ONE; +SODIUM CHLORIDE 1,000 ML IV ONE; -SODIUM CHLORIDE 250 ML IV ONE; -SODIUM CHLORIDE CP ONE; -WATER IVPB ONE
[2022-12-25 16:52] VITALS: BP 150/88; PULSE 91; RESP 20; TEMP 98.4
== END 2022-12-25 16:30 | disposition home or self-care (01) ==
LOC: JONCCHEMO 12:21
PROVIDERS: ATTEND Internal Medicine Hematology & Oncology
PROC: 3E043GC Introduction of Other Therapeutic Substance into Central Vein, Percutaneous Approach (ICD-10-PCS; principal; 2022-12-25)
DX: C23 Malignant neoplasm of gallbladder (principal); C78.7 Secondary malignant neoplasm of liver and intrahepatic bile duct; E11.9 Type 2 diabetes mellitus without complications; Z76.89 Persons encountering health services in other specified circumstances
CPT/HCPCS: 96365; 96366

== ENCOUNTER 2023-01-06 11:01 | Day surgery (SDC) | payer OTHER ==
[~2023-01-06 11:01] MED LIST changes: +ATROPINE SO4 0.4 MG/1 ML VIAL IVPUSH ONE; +DEXAMETHASONE SODIUM PHOSPHATE 8 MG in SODIUM CHLORIDE 50 ML IVPB ONE; +IRINOTECAN HCL 380 MG in DEXTROSE 5%-WATER - 500 ML IVPB ONE; +IRON SUCROSE INJECTION 200 MG in SODIUM CHLORIDE 100 ML IVPB ONE; -KCL 10 MEQ IVPB 10 MEQ/100 ML INFUS.BAG IVPB ONE; +LEUCOVORIN INJECTION - 848 MG in DEXTROSE 5%-WATER - 250 ML IVPB ONE; +LIDOCAINE 2.5%/PRILOCAINE 2.5% 30 GRAM TUBE TP PRN; -MAGNESIUM SULFATE IN WATER 2 GM/50 ML IVPB IVPB ONE; +PALONOSETRON HCL 0.25 MG/5 ML VIAL IVPUSH ONE; -SODIUM CHLORIDE 1,000 ML IV ONE; +SODIUM CHLORIDE 250 ML IV ONE
[2023-01-06 12:22] LABS: BASO % 0.3 % (0-2.0); EOS % 0.4 % (0-4.5); HEMATOCRIT 37.5 % (32.4-45.2); HEMOGLOBIN 12.5 GM/dL (10.7-15.3); LYMPH % 40.9 % (8-40); MCHC 33.3 g/dl (32.0-36.0); MEAN CELL VOLUME 90.1 fl (80-96); MEAN PLT VOLUME 6.9 fl (7.5-11.1); MONO % 5.7 % (3.8-10.2); NEUT % 52.7 % (42.8-82.8); PLATELET COUNT 240 10^3/uL (134-434); RBC 4.16 M/mm3 (3.60-5.2); WHITE BLOOD COUNT 7.3 K/mm3 (4.0-10.0)
[2023-01-06] MEDS ORDERED: FLUOROURACIL 2,500 MG/50 ML VIAL IVPUSH ONE (12:30)
[2023-01-06] MEDS ORDERED: FLUOROURACIL 5,100 MG in SODIUM CHLORIDE 3.8 ML CP ONE (12:45)
[2023-01-06 13:02] LABS: ALBUMIN 3.8 g/dl (3.4-5.0); CALCIUM 9.5 mg/dL (8.5-10.1)
[2023-01-06 13:06] LABS: BILIRUBIN,DIRECT 0.1 mg/dL (0.0-0.2); CREATININE 0.8 mg/dL (0.55-1.3)
[2023-01-06 13:08] LABS: BILIRUBIN,TOTAL 0.6 mg/dL (0.2-1); TOT PROT 7.6 g/dl (6.4-8.2)
[2023-01-06 13:13] LABS: BLOOD UREA NITROGEN 11.5 mg/dL (7-18)
[2023-01-06 17:29] VITALS: RESP 20; TEMP 98
[2023-01-06] MEDS ORDERED: PORTA CATH FLUSH 10 ML IVPUSH PRN ×2 (17:29→18:12)
[2023-01-06 18:02] VITALS: BP 122/76; PULSE 87
[2023-01-08 14:09] LABS: TOTAL PROTEIN, URINE 57.6 mg/dL (Not Estab.)
== END 2023-01-06 17:45 | disposition home or self-care (01) ==
LOC: JONCCHEMO 11:01
PROVIDERS: ATTEND Internal Medicine Hematology & Oncology
DX: Z51.11 Encounter for antineoplastic chemotherapy (principal); C23 Malignant neoplasm of gallbladder; C78.7 Secondary malignant neoplasm of liver and intrahepatic bile duct
CPT/HCPCS: 36415; 80048; 80076; 83735; 84156; 84157; 85025; 96366; 96367; 96375; 96411; 96413; 96415; G0498; J1756; J2469; J9206

== ENCOUNTER 2023-01-20 11:36 | Day surgery (SDC) | payer OTHER ==
[~2023-01-20 11:36] MED LIST changes: -ATROPINE SO4 0.4 MG/1 ML VIAL IVPUSH ONE; -DEXAMETHASONE SODIUM PHOSPHATE 8 MG in SODIUM CHLORIDE 50 ML IVPB ONE; -IRINOTECAN HCL 380 MG in DEXTROSE 5%-WATER - 500 ML IVPB ONE; -LEUCOVORIN INJECTION - 848 MG in DEXTROSE 5%-WATER - 250 ML IVPB ONE; -LIDOCAINE 2.5%/PRILOCAINE 2.5% 30 GRAM TUBE TP PRN; -PALONOSETRON HCL 0.25 MG/5 ML VIAL IVPUSH ONE
[2023-01-20] MEDS ORDERED: DEXAMETHASONE SODIUM PHOSPHATE 8 MG in SODIUM CHLORIDE 50 ML IVPB ONE (11:45)
[2023-01-20] MEDS ORDERED: PALONOSETRON HCL 0.25 MG/5 ML VIAL IVPUSH ONE (11:45)
[2023-01-20] MEDS ORDERED: ATROPINE SO4 0.4 MG/1 ML VIAL IVPUSH ONE (11:45)
[2023-01-20] MEDS ORDERED: IRINOTECAN HCL 380 MG in DEXTROSE 5%-WATER - 500 ML IVPB ONE (12:15)
[2023-01-20] MEDS ORDERED: LEUCOVORIN INJECTION - 848 MG in DEXTROSE 5%-WATER - 250 ML IVPB ONE (12:15)
[2023-01-20 12:18] LABS: BASO % 0.2 % (0-2.0); EOS % 0.5 % (0-4.5); HEMATOCRIT 34.6 % (32.4-45.2); HEMOGLOBIN 11.9 GM/dL (10.7-15.3); MCH 30.3 pg (25.7-33.7); MCHC 34.2 g/dl (32.0-36.0); MEAN CELL VOLUME 88.5 fl (80-96); MEAN PLT VOLUME 6.4 fl (7.5-11.1); MONO % 6.1 % (3.8-10.2); NEUT % 61.2 % (42.8-82.8); PLATELET COUNT 194 10^3/uL (134-434); RBC 3.91 M/mm3 (3.60-5.2); RDW 16.1 % (11.6-15.6); WHITE BLOOD COUNT 6.6 K/mm3 (4.0-10.0)
[2023-01-20 12:49] LABS: ALBUMIN 3.6 g/dl (3.4-5.0); BLOOD UREA NITROGEN 9.7 mg/dL (7-18); CALCIUM 8.5 mg/dL (8.5-10.1); MAGNESIUM 1.7 mg/dL (1.8-2.4)
[2023-01-20 12:52] LABS: BILIRUBIN,DIRECT 0.2 mg/dL (0.0-0.2)
[2023-01-20 12:54] LABS: BILIRUBIN,TOTAL 0.6 mg/dL (0.2-1); TOT PROT 7.3 g/dl (6.4-8.2)
[2023-01-20] MEDS ORDERED: MAGNESIUM SULF 50% (8.12 MEQ/2 ML-1 GM VIAL) IVPB ONE (13:12)
[2023-01-20] MEDS ORDERED: INSULIN (NOVOLOG) ASPART 100 UNITS/ML 10ML VIAL SQ ONE (13:12)
[2023-01-20] MEDS ORDERED: FLUOROURACIL 2,500 MG/50 ML VIAL IVPUSH ONE (14:15)
[2023-01-20] MEDS ORDERED: FLUOROURACIL 5,100 MG in SODIUM CHLORIDE 3.8 ML CP ONE (14:30)
[2023-01-20] MEDS ORDERED: INSULIN (NOVOLOG) ASPART 100 UNITS/ML 10ML VIAL ONE (14:50)
[2023-01-20 18:40] VITALS: BP 149/99; PULSE 93; RESP 20; TEMP 98
[2023-01-20] MEDS ORDERED: PORTA CATH FLUSH 10 ML IVPUSH PRN (18:40)
== END 2023-01-20 18:30 | disposition home or self-care (01) ==
LOC: JONCCHEMO 11:36
PROVIDERS: ATTEND Internal Medicine Hematology & Oncology
DX: Z51.11 Encounter for antineoplastic chemotherapy (principal); C23 Malignant neoplasm of gallbladder; C78.7 Secondary malignant neoplasm of liver and intrahepatic bile duct
CPT/HCPCS: 36415; 80048; 80076; 82962; 83735; 84156; 85025; 96366; 96367; 96375; 96411; 96413; 96415; G0498; J1756; J2469; J9206

== ENCOUNTER 2023-01-22 14:10 | Day surgery (SDC) | payer OTHER ==
[~2023-01-22 14:10] MED LIST changes: -IRON SUCROSE INJECTION 200 MG in SODIUM CHLORIDE 100 ML IVPB ONE; +KCL 10 MEQ IVPB 10 MEQ/100 ML INFUS.BAG IVPB ONE; +MAGNESIUM SULFATE IN WATER 2 GM/50 ML IVPB IVPB ONE; +SODIUM CHLORIDE 1,000 ML IV ONE; -SODIUM CHLORIDE 250 ML IV ONE
[2023-01-22 18:16] VITALS: TEMP 98
[2023-01-22 18:20] VITALS: BP 144/93; PULSE 73; RESP 18
[2023-01-22] MEDS ORDERED: PORTA CATH FLUSH 10 ML IVPUSH PRN (18:20)
== END 2023-01-22 17:30 | disposition home or self-care (01) ==
LOC: JONCCHEMO 14:10
PROVIDERS: ATTEND Internal Medicine Hematology & Oncology
PROC: 3E043GC Introduction of Other Therapeutic Substance into Central Vein, Percutaneous Approach (ICD-10-PCS; principal; 2023-01-22)
DX: C23 Malignant neoplasm of gallbladder (principal); C78.7 Secondary malignant neoplasm of liver and intrahepatic bile duct; Z76.89 Persons encountering health services in other specified circumstances
CPT/HCPCS: 96365; 96368

== ENCOUNTER 2023-02-03 11:49 | Day surgery (SDC) | payer OTHER ==
[~2023-02-03 11:49] MED LIST changes: +ATROPINE SO4 0.4 MG/1 ML VIAL SQ ONE; +DEXAMETHASONE SODIUM PHOSPHATE 8 MG in SODIUM CHLORIDE 50 ML IVPB ONE; +IRINOTECAN HCL 380 MG in DEXTROSE 5%-WATER - 500 ML IVPB ONE; +IRON SUCROSE INJECTION 200 MG in SODIUM CHLORIDE 100 ML IVPB ONE; -KCL 10 MEQ IVPB 10 MEQ/100 ML INFUS.BAG IVPB ONE; +LEUCOVORIN INJECTION - 848 MG in DEXTROSE 5%-WATER - 250 ML IVPB ONE; -MAGNESIUM SULFATE IN WATER 2 GM/50 ML IVPB IVPB ONE; +PALONOSETRON HCL 0.25 MG/5 ML VIAL IVPUSH ONE; +PANTOPRAZOLE SODIUM 40 MG VIAL IVPB ONE; -SODIUM CHLORIDE 1,000 ML IV ONE; +SODIUM CHLORIDE 250 ML IV ONE
[2023-02-03] MEDS ORDERED: FLUOROURACIL 2,500 MG/50 ML VIAL IVPUSH ONE (12:30)
[2023-02-03 12:41] LABS: BASO % 0.3 % (0-2.0); EOS % 0.7 % (0-4.5); HEMATOCRIT 34.8 % (32.4-45.2); LYMPH % 37.2 % (8-40); MCH 31.2 pg (25.7-33.7); MCHC 34.5 g/dl (32.0-36.0); MEAN CELL VOLUME 90.6 fl (80-96); MEAN PLT VOLUME 7.5 fl (7.5-11.1); MONO % 6.9 % (3.8-10.2); NEUT % 54.9 % (42.8-82.8); PLATELET COUNT 178 10^3/uL (134-434); RBC 3.84 M/mm3 (3.60-5.2); RDW 17.2 % (11.6-15.6); WHITE BLOOD COUNT 5.4 K/mm3 (4.0-10.0)
[2023-02-03] MEDS ORDERED: FLUOROURACIL CP ONE (12:45)
[2023-02-03] MEDS ORDERED: SODIUM CHLORIDE CP ONE (12:45)
[2023-02-03 12:56] LABS: CALCIUM 8.8 mg/dL (8.5-10.1)
[2023-02-03 12:57] LABS: ALBUMIN 3.5 g/dl (3.4-5.0); BLOOD UREA NITROGEN 9.8 mg/dL (7-18); MAGNESIUM 1.6 mg/dL (1.8-2.4)
[2023-02-03 12:59] LABS: BILIRUBIN,DIRECT 0.2 mg/dL (0.0-0.2)
[2023-02-03 13:00] LABS: CREATININE 1.1 mg/dL (0.55-1.3)
[2023-02-03 13:01] LABS: BILIRUBIN,TOTAL 0.6 mg/dL (0.2-1)
[2023-02-03] MEDS ORDERED: INSULIN (NOVOLOG) ASPART 100 UNITS/ML 10ML VIAL SQ ONE ×2 (13:05→18:26)
[2023-02-03] MEDS: MAGNESIUM 2GM/50ML STERILE WATER IVPB IVPB ONE ×2 (13:17→17:28)
[2023-02-03] MEDS ORDERED: ATROPINE SO4 0.4 MG/1 ML VIAL IVPUSH ONE (13:51)
[2023-02-03] MEDS ORDERED: PORTA CATH FLUSH 10 ML IVPUSH PRN (14:38)
[2023-02-03] MEDS ORDERED: DEXAMETHASONE SOD PHOSPHATE 10 MG/1 ML VIAL IVPB ONE (17:00)
[2023-02-03 17:05] VITALS: RESP 18
[2023-02-03] MEDS ORDERED: DEXAMETHASONE SOD PHOSPHATE 10 MG/1 ML VIAL IVPUSH ONE (17:25)
[2023-02-03 18:45] VITALS: BP 176/91; PULSE 79; TEMP 98.8
== END 2023-02-03 18:52 | disposition home or self-care (01) ==
LOC: JONCCHEMO 11:49
PROVIDERS: ATTEND Internal Medicine Hematology & Oncology
PROC: 3E04305 Introduction of Other Antineoplastic into Central Vein, Percutaneous Approach (ICD-10-PCS; principal; 2023-02-03)
PROC: 3E04305 Introduction of Other Antineoplastic into Central Vein, Percutaneous Approach (ICD-10-PCS; 2023-02-03)
PROC: 3E043GC Introduction of Other Therapeutic Substance into Central Vein, Percutaneous Approach (ICD-10-PCS; 2023-02-03)
PROC: 3E0437Z Introduction of Electrolytic and Water Balance Substance into Central Vein, Percutaneous Approach (ICD-10-PCS; 2023-02-03)
DX: Z51.11 Encounter for antineoplastic chemotherapy (principal); C23 Malignant neoplasm of gallbladder
CPT/HCPCS: 36415; 80048; 80076; 82728; 82962; 83540; 83550; 83735; 85025; 86301; 96366; 96367; 96375; 96413; 96415; G0498; J1100; J1756; J2469; J9206

== ENCOUNTER 2023-02-05 16:15 | Day surgery (SDC) | payer OTHER ==
[~2023-02-05 16:15] MED LIST changes: -ATROPINE SO4 0.4 MG/1 ML VIAL SQ ONE; -DEXAMETHASONE SODIUM PHOSPHATE 8 MG in SODIUM CHLORIDE 50 ML IVPB ONE; -IRINOTECAN HCL 380 MG in DEXTROSE 5%-WATER - 500 ML IVPB ONE; -IRON SUCROSE INJECTION 200 MG in SODIUM CHLORIDE 100 ML IVPB ONE; -LEUCOVORIN INJECTION - 848 MG in DEXTROSE 5%-WATER - 250 ML IVPB ONE; +MAGNESIUM SULFATE IVPB ONE; -PALONOSETRON HCL 0.25 MG/5 ML VIAL IVPUSH ONE; -PANTOPRAZOLE SODIUM 40 MG VIAL IVPB ONE; +POTASSIUM CHLORIDE IVPB ONE; -SODIUM CHLORIDE 250 ML IV ONE; +SODIUM CHLORIDE IVPB ONE
[2023-02-05 17:36] VITALS: RESP 20; TEMP 98.4
[2023-02-05 17:40] VITALS: BP 154/92; PULSE 87
[2023-02-05] MEDS ORDERED: PORTA CATH FLUSH 10 ML IVPUSH PRN (17:40)
== END 2023-02-05 17:45 | disposition home or self-care (01) ==
LOC: JONCCHEMO 16:15
PROVIDERS: ATTEND Internal Medicine Hematology & Oncology
PROC: 3E0437Z Introduction of Electrolytic and Water Balance Substance into Central Vein, Percutaneous Approach (ICD-10-PCS; principal; 2023-02-05)
DX: Z76.89 Persons encountering health services in other specified circumstances (principal); C23 Malignant neoplasm of gallbladder
CPT/HCPCS: 96360; 96361

== ENCOUNTER 2023-02-17 11:11 | Day surgery (SDC) | payer OTHER ==
[~2023-02-17 11:11] MED LIST changes: +ATROPINE SO4 0.4 MG/1 ML VIAL IVPUSH ONE; +DEXAMETHASONE SODIUM PHOSPHATE 8 MG in SODIUM CHLORIDE 50 ML IVPB ONE; +IRINOTECAN HCL 380 MG in DEXTROSE 5%-WATER - 500 ML IVPB ONE; +LEUCOVORIN CALCIUM 840 MG in DEXTROSE 5%-WATER - 166 ML IVPB ONE; -MAGNESIUM SULFATE IVPB ONE; +PALONOSETRON HCL 0.25 MG/5 ML VIAL IVPUSH ONE; -POTASSIUM CHLORIDE IVPB ONE; +SODIUM CHLORIDE 250 ML IV ONE; -SODIUM CHLORIDE IVPB ONE; +diphenhydrAMINE HCL 25 MG CAPSULE (FP) PO ONE
[2023-02-17 12:07] LABS: BASO % 0.3 % (0-2.0); EOS % 0.6 % (0-4.5); HEMATOCRIT 34.4 % (32.4-45.2); LYMPH % 31.8 % (8-40); MCHC 34.9 g/dl (32.0-36.0); MEAN CELL VOLUME 91.6 fl (80-96); MEAN PLT VOLUME 7.1 fl (7.5-11.1); MONO % 6.8 % (3.8-10.2); NEUT % 60.5 % (42.8-82.8); PLATELET COUNT 173 10^3/uL (134-434); RBC 3.76 M/mm3 (3.60-5.2); RDW 17.4 % (11.6-15.6); WHITE BLOOD COUNT 5.3 K/mm3 (4.0-10.0)
[2023-02-17 12:25] LABS: CHLORIDE 102 mmol/L (98-107); SODIUM 136 mmol/L (136-145)
[2023-02-17 12:27] LABS: ALBUMIN 3.5 g/dl (3.4-5.0); ANION GAP 11 MMOL/L (8-16); CALCIUM 9.5 mg/dL (8.5-10.1); CO2 24 mmol/L (21-32)
[2023-02-17 12:28] LABS: BLOOD UREA NITROGEN 13.7 mg/dL (7-18); MAGNESIUM 1.6 mg/dL (1.8-2.4)
[2023-02-17 12:30] LABS: BILIRUBIN,DIRECT 0.2 mg/dL (0.0-0.2); CREATININE 1.2 mg/dL (0.55-1.3); SGPT/ALT 24 U/L (13-61)
[2023-02-17] MEDS ORDERED: FLUOROURACIL 2,500 MG/50 ML VIAL IVPUSH ONE (12:30)
[2023-02-17 12:31] LABS: SGOT/AST 12 U/L (15-37)
[2023-02-17 12:32] LABS: BILIRUBIN,TOTAL 0.6 mg/dL (0.2-1); TOT PROT 6.8 g/dl (6.4-8.2)
[2023-02-17 12:33] LABS: ALK PHOS 174 U/L (45-117)
[2023-02-17 12:47] LABS: GLUCOSE,RANDOM 446 mg/dL (74-106)
[2023-02-17] MEDS ORDERED: FLUOROURACIL 5,050 MG in SODIUM CHLORIDE 37 ML CP ONE (13:00)
[2023-02-17] MEDS ORDERED: INSULIN (NOVOLOG) ASPART 100 UNITS/ML 10ML VIAL SQ ONE ×2 (13:04→17:18)
[2023-02-17] MEDS ORDERED: MAGNESIUM 2GM/50ML STERILE WATER IVPB IVPB ONE (13:05)
[2023-02-17 17:43] VITALS: BP 151/96; PULSE 116; RESP 18; TEMP 98.4
[2023-02-17] MEDS ORDERED: PORTA CATH FLUSH 10 ML IVPUSH PRN (17:43)
== END 2023-02-17 17:18 | disposition home or self-care (01) ==
LOC: JONCCHEMO 11:11
PROVIDERS: ATTEND Internal Medicine Hematology & Oncology
DX: Z51.11 Encounter for antineoplastic chemotherapy (principal); C23 Malignant neoplasm of gallbladder
CPT/HCPCS: 36415; 80048; 80076; 82962; 83735; 85025; 96366; 96367; 96411; 96413; G0498; J2469; J9206

== ENCOUNTER 2023-02-19 14:40 | Day surgery (SDC) | payer OTHER ==
[~2023-02-19 14:40] MED LIST changes: -ATROPINE SO4 0.4 MG/1 ML VIAL IVPUSH ONE; -DEXAMETHASONE SODIUM PHOSPHATE 8 MG in SODIUM CHLORIDE 50 ML IVPB ONE; -IRINOTECAN HCL 380 MG in DEXTROSE 5%-WATER - 500 ML IVPB ONE; +KCL 10 MEQ IVPB 10 MEQ/100 ML INFUS.BAG IVPB ONE; -LEUCOVORIN CALCIUM 840 MG in DEXTROSE 5%-WATER - 166 ML IVPB ONE; +MAGNESIUM SULFATE IN WATER 2 GM/50 ML IVPB IVPB ONE; -PALONOSETRON HCL 0.25 MG/5 ML VIAL IVPUSH ONE; +SODIUM CHLORIDE 1,000 ML IV ONE; -SODIUM CHLORIDE 250 ML IV ONE; -diphenhydrAMINE HCL 25 MG CAPSULE (FP) PO ONE
[2023-02-19 17:11] VITALS: RESP 20; TEMP 98.7
[2023-02-19 17:20] VITALS: BP 133/79; PULSE 91
[2023-02-19] MEDS ORDERED: PORTA CATH FLUSH 10 ML IVPUSH PRN (17:20)
== END 2023-02-19 17:10 | disposition home or self-care (01) ==
LOC: JONCCHEMO 14:40
PROVIDERS: ATTEND Internal Medicine Hematology & Oncology
PROC: 3E043GC Introduction of Other Therapeutic Substance into Central Vein, Percutaneous Approach (ICD-10-PCS; principal; 2023-02-19)
DX: C23 Malignant neoplasm of gallbladder (principal); Z76.89 Persons encountering health services in other specified circumstances
CPT/HCPCS: 96365

== ENCOUNTER 2023-03-03 11:00 | Day surgery (SDC) | payer OTHER ==
[~2023-03-03 11:00] MED LIST changes: +ATROPINE SO4 0.4 MG/1 ML VIAL IVPUSH ONE; +DEXAMETHASONE SODIUM PHOSPHATE 8 MG in SODIUM CHLORIDE 50 ML IVPB ONE; +DEXTROSE 5% IVPB ONE; +IRINOTECAN HCL 380 MG in DEXTROSE 5%-WATER - 500 ML IVPB ONE; -KCL 10 MEQ IVPB 10 MEQ/100 ML INFUS.BAG IVPB ONE; +LEUCOVORIN IVPB ONE; -MAGNESIUM SULFATE IN WATER 2 GM/50 ML IVPB IVPB ONE; +PALONOSETRON HCL 0.25 MG/5 ML VIAL IVPUSH ONE; -SODIUM CHLORIDE 1,000 ML IV ONE; +SODIUM CHLORIDE 250 ML IV ONE; +WATER IVPB ONE; +diphenhydrAMINE HCL 25 MG CAPSULE (FP) PO ONE
[2023-03-03 11:43] LABS: BASO % 0.2 % (0-2.0); EOS % 0.8 % (0-4.5); HEMATOCRIT 34.1 % (32.4-45.2); HEMOGLOBIN 11.9 GM/dL (10.7-15.3); LYMPH % 38.7 % (8-40); MCH 32.1 pg (25.7-33.7); MCHC 34.8 g/dl (32.0-36.0); MEAN CELL VOLUME 92.3 fl (80-96); MEAN PLT VOLUME 7.1 fl (7.5-11.1); MONO % 7.7 % (3.8-10.2); NEUT % 52.6 % (42.8-82.8); PLATELET COUNT 191 10^3/uL (134-434); RDW 17.5 % (11.6-15.6); WHITE BLOOD COUNT 5.3 K/mm3 (4.0-10.0)
[2023-03-03] MEDS ORDERED: FLUOROURACIL 2,500 MG/50 ML VIAL IVPUSH ONE (12:00)
[2023-03-03 12:05] LABS: CHLORIDE 102 mmol/L (98-107); POTASSIUM 4.2 mmol/L (3.5-5.1); SODIUM 137 mmol/L (136-145)
[2023-03-03 12:08] LABS: ALBUMIN 3.2 g/dl (3.4-5.0); ANION GAP 11 MMOL/L (8-16); BLOOD UREA NITROGEN 9.8 mg/dL (7-18); CO2 25 mmol/L (21-32); MAGNESIUM 1.7 mg/dL (1.8-2.4)
[2023-03-03] MEDS ORDERED: MAGNESIUM SULF 50% (8.12 MEQ/2 ML-1 GM VIAL) IVPB ONE (12:09)
[2023-03-03 12:11] LABS: BILIRUBIN,DIRECT 0.1 mg/dL (0.0-0.2); SGOT/AST 14 U/L (15-37); SGPT/ALT 24 U/L (13-61)
[2023-03-03 12:12] LABS: BILIRUBIN,TOTAL 0.8 mg/dL (0.2-1); TOT PROT 6.7 g/dl (6.4-8.2)
[2023-03-03 12:13] LABS: ALK PHOS 167 U/L (45-117)
[2023-03-03] MEDS ORDERED: FLUOROURACIL 5,050 MG in SODIUM CHLORIDE 0.2 ML CP ONE (12:15)
[2023-03-03 12:17] LABS: GLUCOSE,RANDOM 409 mg/dL (74-106)
[2023-03-03] MEDS ORDERED: INSULIN (NOVOLOG) ASPART 100 UNITS/ML 10ML VIAL SQ ONE ×2 (12:25→16:21)
[2023-03-03 12:52] LABS: IRON SERUM 90 ug/dL (50-175)
[2023-03-03 12:54] LABS: TOTAL IRON BINDING CAPACITY 289 ug/dL (250-450)
[2023-03-03] MEDS ORDERED: INSULIN (NOVOLOG) ASPART 100 UNITS/ML 10ML VIAL ONE (16:22)
[2023-03-03 17:22] VITALS: BP 115/75; PULSE 98; RESP 20; TEMP 98.4
== END 2023-03-03 17:00 | disposition home or self-care (01) ==
LOC: JONCCHEMO 11:00 → J7W 11:04 → JONCCHEMO 17:00
PROVIDERS: ATTEND Internal Medicine Hematology & Oncology
DX: Z51.11 Encounter for antineoplastic chemotherapy (principal); C23 Malignant neoplasm of gallbladder; C78.7 Secondary malignant neoplasm of liver and intrahepatic bile duct
CPT/HCPCS: 36415; 80048; 80076; 82306; 82728; 82962; 83540; 83550; 83735; 85025; 86301; 96366; 96367; 96375; 96411; 96413; G0498; J2469; J9206

== ENCOUNTER 2023-03-05 14:36 | Day surgery (SDC) | payer OTHER ==
[~2023-03-05 14:36] MED LIST changes: -ATROPINE SO4 0.4 MG/1 ML VIAL IVPUSH ONE; -DEXAMETHASONE SODIUM PHOSPHATE 8 MG in SODIUM CHLORIDE 50 ML IVPB ONE; -DEXTROSE 5% IVPB ONE; -IRINOTECAN HCL 380 MG in DEXTROSE 5%-WATER - 500 ML IVPB ONE; +KCL 10 MEQ IVPB 10 MEQ/100 ML INFUS.BAG IVPB ONE; -LEUCOVORIN IVPB ONE; +MAGNESIUM SULFATE IN WATER 2 GM/50 ML IVPB IVPB ONE; -PALONOSETRON HCL 0.25 MG/5 ML VIAL IVPUSH ONE; +SODIUM CHLORIDE 1,000 ML IV ONE; -SODIUM CHLORIDE 250 ML IV ONE; -WATER IVPB ONE; -diphenhydrAMINE HCL 25 MG CAPSULE (FP) PO ONE
[2023-03-05 14:56] VITALS: TEMP 98.4
[2023-03-05 18:10] VITALS: BP 137/87; PULSE 87; RESP 18
[2023-03-05] MEDS ORDERED: PORTA CATH FLUSH 10 ML IVPUSH PRN (18:10)
== END 2023-03-05 17:00 | disposition home or self-care (01) ==
LOC: JONCCHEMO 14:36 → J7W 14:36 → JONCCHEMO 17:00
PROVIDERS: ATTEND Internal Medicine Hematology & Oncology
PROC: 3E043GC Introduction of Other Therapeutic Substance into Central Vein, Percutaneous Approach (ICD-10-PCS; principal; 2023-03-05)
DX: C23 Malignant neoplasm of gallbladder (principal)
CPT/HCPCS: 96365; 96368

== ENCOUNTER → 2024-06-02 | Day surgery (SDC) | payer OTHER ==
[2024-06-02 11:54] LABS: BASO % 0.4 % (0-2.0); EOS % 0.3 % (0-4.5); HEMATOCRIT 28.7 % (32.4-45.2); HEMOGLOBIN 9.2 GM/dL (10.7-15.3); LYMPH % 22.3 % (8-40); MCH 26.8 pg (25.7-33.7); MCHC 32.2 g/dl (32.0-36.0); MEAN CELL VOLUME 83.2 fl (80-96); MEAN PLT VOLUME 6.6 fl (7.5-11.1); MONO % 6.2 % (3.8-10.2); NEUT % 70.8 % (42.8-82.8); PLATELET COUNT 398 10^3/uL (134-434); RBC 3.44 M/mm3 (3.60-5.2); RDW 15.9 % (11.6-15.6); WHITE BLOOD COUNT 11.2 K/mm3 (4.0-10.0)
[2024-06-02 12:00] LABS: INR 1.05 (0.83-1.09); PROTHROMBIN TIME (PATIENT) 11.8 SEC (9.7-13.0)
== END | disposition home or self-care (01) ==
LOC: JRADIR 11:16
PROVIDERS: ATTEND Internal Medicine Hematology & Oncology
PROC: 0JPT0WZ Removal of Totally Implantable Vascular Access Device from Trunk Subcutaneous Tissue and Fascia, Open Approach (ICD-10-PCS; principal; 2024-06-02)
DX: Z45.2 Encounter for adjustment and management of vascular access device (principal)
CPT/HCPCS: 36415; 36590; 85025; 85610

== ENCOUNTER 2025-02-04 01:25 | Emergency (ER) | payer OTHER ==
[2025-02-04 01:57] VITALS: BMI 22.6
[2025-02-04] MEDS ORDERED: VANCOMYCIN HCL 1,500 MG in DEXTROSE 5%-WATER - 500 ML IVPB ONE (02:14)
[2025-02-04] MEDS ORDERED: PIPERACILLIN/TAZOB 3.375 GM 3.375 GM/50 ML BAG IVPB ONE (02:37)
[2025-02-04] MEDS ORDERED: ACETAMINOPHEN INJECTION 100 ML ONE (02:37)
[2025-02-04 02:42] LABS: ABSOLUTE IMMATURE GRANULOCYTES 0.06 x10^3/uL (0.0-0.031); BASOPHILS # 0.02 x10^3/uL (0.01-0.08); EOSINOPHIL % 0.1 % (0.7-5.8); EOSINOPHILS # 0.01 x10^3/uL (0.04-0.36); HEMATOCRIT 34.8 % (34.1-44.9); MCHC 31.6 g/dl (32.2-35.5); MEAN PLT VOLUME 10.1 fl (9.4-12.3); MONOCYTE # 0.82 x10^3/uL (0.24-0.86); MONOCYTE % 7.3 % (4.7-12.5); PLATELET COUNT 202 x10^3/uL (182-369); RDW 17.3 % (12.3-16.6)
[2025-02-04 02:43] LABS: VENOUS O2 SATURATION 64.5 % (70-80); VENOUS PCO2 41.4 mmHg (38-52); VENOUS PH 7.382 (7.310-7.410)
[2025-02-04 02:55] LABS: INR 1.36 (0.83-1.09)
[2025-02-04] MEDS: SODIUM CHLORIDE 0.9% 500 ML INFUS.BAG IV ONE ×2 (02:56→08:30)
[2025-02-04] MEDS: ACETAMINOPHEN 1000 MG/100 ML BAG IVPB ONE (02:56)
[2025-02-04 02:58] LABS: ACTIVATED PTT 35.7 SECONDS (25.2-36.5)
[2025-02-04 03:01] LABS: CHLORIDE 97 mmol/L (98-107); POTASSIUM 4.5 mmol/L (3.5-5.1); SODIUM 131 mmol/L (136-145)
[2025-02-04 03:03] LABS: BLOOD UREA NITROGEN 7.6 mg/dL (7-18); CALCIUM 8.3 mg/dL (8.5-10.1)
[2025-02-04 03:04] LABS: ALBUMIN 1.5 g/dl (3.4-5.0); ANION GAP 7 mmol/L (4-13); CO2 27 mmol/L (21-32); GLUCOSE,RANDOM 140 mg/dL (74-106)
[2025-02-04] MEDS: PIPERACILLIN/TAZOB 3.375 GM 3.375 GM in DEXTROSE 5%-WATER - 50 ML IVPB ONE (03:06)
[2025-02-04 03:07] LABS: CREATININE 0.4 mg/dL (0.55-1.3); SGOT/AST 67 U/L (15-37); SGPT/ALT 54 U/L (13-61)
[2025-02-04 03:08] LABS: BILIRUBIN,TOTAL 3.4 mg/dL (0.2-1); TOT PROT 5.4 g/dl (6.4-8.2)
[2025-02-04 03:32] LABS: LACTIC ACID 2.8 mmol/L (0.4-2.0)
[2025-02-04] MEDS: VANCOMYCIN PREMIX 1.5 GM 1,500 MG/300 ML BAG IVPB ONE (03:42)
[2025-02-04 04:19] LABS: ALK PHOS > 2330 U/L (45-117)
[2025-02-04 05:27] LABS: LACTIC ACID 2.5 mmol/L (0.4-2.0)
[2025-02-04 08:26] LABS: URINE APPEARANCE CLEAR; URINE BILIRUBIN NEGATIVE (NEGATIVE); URINE COLOR YELLOW; URINE GLUCOSE (UA) NEGATIVE (NEGATIVE); URINE KETONE NEGATIVE (NEGATIVE); URINE LEUK ESTERASE NEGATIVE (NEGATIVE); URINE NITRITE NEGATIVE (NEGATIVE); URINE PROTEIN NEGATIVE (NEGATIVE); URINE UROBILINOGEN 0.2 mg/dL (0.2-1.0)
[2025-02-04 13:03] LABS: BLOOD UREA NITROGEN 5.4 mg/dL (7-18); CREATININE 0.2 mg/dL (0.55-1.3); GLUCOSE,RANDOM 55 mg/dL (74-106); SODIUM 136 mmol/L (136-145)
[2025-02-04 13:04] LABS: ALBUMIN 1.3 g/dl (3.4-5.0); CALCIUM 7.7 mg/dL (8.5-10.1); CHLORIDE 106 mmol/L (98-107); CO2 24 mmol/L (21-32); SGPT/ALT 50 U/L (13-61); TOT PROT 4.8 g/dl (6.4-8.2)
[2025-02-04 13:06] LABS: ANION GAP 6 mmol/L (4-13); SGOT/AST 73 U/L (15-37)
[2025-02-04 13:46] LABS: ALK PHOS > 2330 U/L (45-117)
[2025-02-04 15:48] VITALS: BP 112/79; PULSE 98; TEMP 98.9
[2025-02-04 15:50] VITALS: RESP 24
== END 2025-02-04 12:00 | disposition short-term general hospital (02) ==
LOC: JER 01:25
PROC: 3E03329 Introduction of Other Anti-infective into Peripheral Vein, Percutaneous Approach (ICD-10-PCS; principal; 2025-02-04)
PROC: 3E03329 Introduction of Other Anti-infective into Peripheral Vein, Percutaneous Approach (ICD-10-PCS; 2025-02-04)
PROC: 3E033NZ Introduction of Analgesics, Hypnotics, Sedatives into Peripheral Vein, Percutaneous Approach (ICD-10-PCS; 2025-02-04)
DX: K75.0 Abscess of liver (principal); R06.02 Shortness of breath; R10.13 Epigastric pain; R63.8 Other symptoms and signs concerning food and fluid intake
CPT/HCPCS: 0241U-QW; 36415; 71045-TC-FY; 74176-TC; 80053; 81003; 82803; 83605; 84484; 85025; 85610; 85730; 86850; 86900; 86901; 87040; 87086; 87186; 93005; 93010; 99285-25; J0131